=== PATIENT | male | born 1950 | race Caucasian/White ===

== ENCOUNTER 2016-07-29 10:25 | Outpatient (CLI) | payer MEDICARE, OTHER | END 2016-07-29 10:26 | disposition home or self-care (01) | DX: E11.9 Type 2 diabetes mellitus without complications (principal) ==

== ENCOUNTER 2016-08-18 10:35 | Outpatient (CLI) | payer MEDICARE, OTHER | END 2016-08-18 10:36 | disposition home or self-care (01) | DX: G47.33 Obstructive sleep apnea (adult) (pediatric) (principal) | CPT/HCPCS: 99214; G0463 ==

== ENCOUNTER 2016-10-03 08:50 | Outpatient (CLI) | payer MEDICARE, OTHER | END 2016-10-03 08:51 | disposition home or self-care (01) | DX: G47.33 Obstructive sleep apnea (adult) (pediatric) (principal) | CPT/HCPCS: 99214; G0463 ==

== ENCOUNTER 2016-10-31 16:48 | Outpatient (CLI) | payer MEDICARE, OTHER | END 2016-10-31 16:49 | disposition home or self-care (01) | DX: E11.9 Type 2 diabetes mellitus without complications (principal) ==

== ENCOUNTER 2017-03-07 07:45 | Outpatient (CLI) | payer MEDICARE, OTHER ==
[2017-03-07 14:12] LABS: HEMOGLOBIN A1C 0.91 g/dL
[2017-03-07 14:25] LABS: ALBUMIN/GLOBULIN RATIO 1.3 (1.0-2.2); BILIRUBIN,TOTAL 0.3 mg/dL (0.2-1.0); CALCIUM 9.6 mg/dL (8.5-10.3); CREATININE 1.3 mg/dL (0.6-1.2); POTASSIUM 3.5 mmol/L (3.5-5.0); TOTAL PROTEIN 7.5 g/dL (6.7-8.2)
== END 2017-03-07 07:46 | disposition home or self-care (01) ==
LOC: LAB.WCP 07:45
PROVIDERS: ATTEND Family Medicine
DX: B07.9 Viral wart, unspecified (principal); E11.9 Type 2 diabetes mellitus without complications; M25.551 Pain in right hip
CPT/HCPCS: 36415; 80053; 83036

== ENCOUNTER 2017-04-13 05:59 | Day surgery (SDC) | payer MEDICARE, OTHER ==
[2017-04-13] MEDS ORDERED: KETOROLAC 0.45% OPHTH DROPS ONE (06:30)
[2017-04-13] MEDS ORDERED: PROPARACAINE 0.5% OPHTH DROPS 15 ML ONE ×2 (06:30→07:20)
[2017-04-13] MEDS ORDERED: CYCLOPENTOLATE 1% OPHTH DROPS 2 ML ONE (06:31)
[2017-04-13] MEDS ORDERED: PHENYLEPHRINE 2.5% OPHTH 2 ML DROPS ONE (06:32)
[2017-04-13] MEDS ORDERED: PHENYLEPHRINE 2.5% OPHTH 2 ML DROPS OPTH ONE (06:50)
[2017-04-13] MEDS ORDERED: KETOROLAC 0.45% OPHTH DROPS OPTH ONE (06:50)
[2017-04-13] MEDS ORDERED: PROPARACAINE 0.5% OPHTH DROPS 15 ML OPTH ONE ×2 (06:50→07:32)
[2017-04-13] MEDS ORDERED: CYCLOPENTOLATE 1% OPHTH DROPS 2 ML OPTH ONE (06:50)
[2017-04-13] MEDS ORDERED: LACTATED RINGERS 1,000 ML IV ONE (06:54)
[2017-04-13] MEDS ORDERED: BRIMONIDINE 0.2% OPHTH DROPS 5 ML ONE (07:19)
[2017-04-13] MEDS ORDERED: TIMOLOL 0.5% OPHTH DROPS ONE (07:19)
[2017-04-13] MEDS ORDERED: BRIMONIDINE 0.2% OPHTH DROPS 5 ML OPTH ONE (07:29)
[2017-04-13] MEDS ORDERED: EPINEPHrine 1 MG/ML AMP IVP ONE (07:29)
[2017-04-13] MEDS ORDERED: CHONDR SULF/HYALURONATE SYRINGE IO ONE (07:32)
[2017-04-13] MEDS ORDERED: TIMOLOL 0.5% OPHTH DROPS OPTH ONE (07:33)
[2017-04-13] MEDS ORDERED: TRIAMCIN/MOXIFLOX/VANCO 1 ML VIAL IO ONE ×2 (07:34)
[2017-04-13] MEDS ORDERED: BSS/LIDOCAINE/EPINEPHRINE 1 ML SYRINGE IO ONE ×2 (07:34)
[2017-04-13] MEDS ORDERED: MIDAZOLAM 2 MG/2 ML VIAL IVP ONE (07:45)
[2017-04-13] MEDS ORDERED: GLYCOPYRROLATE 1 MG/5 ML VIAL IVP ONE (07:45)
[2017-04-13] MEDS ORDERED: ATROPINE ABBOJECT 1 MG/10 ML SYRINGE IVP ONE (07:45)
[2017-04-13 07:56] VITALS: BP 106/66
--- NOTE | 2017-04-13 10:11 | OPERATIVE REPORT ---
DATE OF SURGERY: 04/13/2017 00:00:00 PREOPERATIVE DIAGNOSIS: Visually significant cataract, right eye. This is his first cataract surgery. POSTOPERATIVE DIAGNOSIS: Visually significant cataract, right eye. This is his first cataract surgery . NAME OF PROCEDURE: Phacoemulsification posterior chamber intraocular lens implant, right eye. SURGEON: Declan Thacker MD. ANESTHESIA: Monitored anesthesia care. COMPLICATIONS: None. OPERATIVE INDICATIONS: This is a 66-year-old man with progressive vision loss in the right eye due to 2+ nuclear sclerotic, 2-3+ cortical and 1+ posterior subcapsular cataract. Best corrected visual acu ity was 20/25 with glare to 20/50 in the right eye. Indications for surgery were overall decrease in vision, difficulty seeing words on a computer screen, difficulty reading, difficulty seeing words and game scores on TV, difficulty seeing street signs, difficulty driving at night because of head light s from other vehicles or street lights, and difficulty with glare or bright lights in any situation a nd he also complains of double vision in that eye. He was consented at length concerning the risks an d benefits of cataract surgery, after which he expressed a desire to proceed with surgery. OPERATIVE PROCEDURE: The patient was taken into OR #2 and placed under monitored anesthesia care. A s terile time-out was conducted confirming the correct patient, correct procedure and correct surgical site. He was given topical anesthesia and then prepped and draped in the usual sterile fashion. The e ye was entered at the 12 and 9 o'clock positions. Intracameral Shugarcaine was injected into the ante rior chamber followed by Viscoat. A continuous tear curvilinear capsulorrhexis was performed. The nuc leus was hydrodissected and phacoemulsified. The cortex was evacuated using automated infusion aspira tion. Provisc was injected into the capsular bag, and a 20.5-diopter intraocular lens inserted into t he bag. Approximately 0.7 mL of a mixture of triamcinolone, moxifloxacin, and vancomycin was injected subconjunctivally in the superior quadrant for infection and inflammation prophylaxis. I/A was used to evacuate the viscoelastic materials. The eye was inflated to a physiologic pressure using balanced salt solution and found to be watertight. The patient was taken from the operating room in good cond ition and given postoperative instructions. JOB #: [id number] EXT JOB #:[id number]
== END 2017-04-13 06:00 | disposition home or self-care (01) ==
LOC: SDS 05:59
PROVIDERS: ATTEND Ophthalmology
PROC: 08RJ3JZ Replacement of Right Lens with Synthetic Substitute, Percutaneous Approach (ICD-10-PCS; principal; 2017-04-13 07:30)
DX: H25.811 Combined forms of age-related cataract, right eye (principal); E11.9 Type 2 diabetes mellitus without complications; I10 Essential (primary) hypertension; J44.9 Chronic obstructive pulmonary disease, unspecified; E78.00 Pure hypercholesterolemia, unspecified; G47.33 Obstructive sleep apnea (adult) (pediatric); Z79.82 Long term (current) use of aspirin; Z79.84 Long term (current) use of oral hypoglycemic drugs
CPT/HCPCS: 66984; A9270; J7120; V2632

== ENCOUNTER 2017-06-05 10:15 | Outpatient (CLI) | payer MEDICARE, OTHER ==
[2017-06-05 12:59] LABS: HEMOGLOBIN A1C 0.88 g/dL
== END 2017-06-05 10:16 | disposition home or self-care (01) ==
LOC: LAB.WCP 10:15
PROVIDERS: ATTEND Family Medicine
DX: E11.9 Type 2 diabetes mellitus without complications (principal)
CPT/HCPCS: 36415; 83036

== ENCOUNTER 2017-09-14 08:00 | Outpatient (CLI) | payer MEDICARE, OTHER ==
[2017-09-14 12:54] LABS: ALBUMIN 4.1 g/dL (3.2-5.5); ALBUMIN/GLOBULIN RATIO 1.2 (1.0-2.2); BILIRUBIN,TOTAL 0.5 mg/dL (0.2-1.0); CALCIUM 9.1 mg/dL (8.5-10.3); CREATININE 1.1 mg/dL (0.6-1.2); TOTAL PROTEIN 7.4 g/dL (6.7-8.2)
[2017-09-14 13:33] LABS: HB2 TOTAL 15.3 g/dL; HEMOGLOBIN A1C 0.84 g/dL; HEMOGLOBIN A1C % 7.2 % (4.6-6.2)
== END 2017-09-14 08:01 | disposition home or self-care (01) ==
LOC: LAB.WCP 08:00
PROVIDERS: ATTEND Family Medicine
DX: I10 Essential (primary) hypertension (principal); E11.9 Type 2 diabetes mellitus without complications
CPT/HCPCS: 36415; 80053; 83036

== ENCOUNTER 2017-10-09 13:34 | Outpatient (CLI) | payer MEDICARE, OTHER | END 2017-10-09 13:35 | disposition home or self-care (01) | LOC: SC 13:34 | PROVIDERS: ATTEND Nurse Practitioner Family | DX: G47.33 Obstructive sleep apnea (adult) (pediatric) (principal) | CPT/HCPCS: 99214; G0463; 99212 ==

== ENCOUNTER 2018-03-08 10:05 | Outpatient (CLI) | payer MEDICARE, OTHER ==
[2018-03-08 12:36] LABS: BASOPHILS % (AUTO) 0.6 %; EOSINOPHILS # (AUTO) 0.3 10^3/uL (0.0-0.7); EOSINOPHILS % (AUTO) 3.7 %; HGB - HEMOGLOBIN 14.9 g/dL (14.0-18.0); LYMPHOCYTES # (AUTO) 1.3 10^3/uL (1.5-3.5); LYMPHOCYTES % (AUTO) 19.7 %; MEAN CORPUSCULAR HEMOGLOBIN 28.1 pg (27.0-31.0); MEAN CORPUSCULAR VOLUME 82.5 fL (80.0-94.0); MEAN PLATELET VOLUME 9.4 fL (7.4-11.4); MONOCYTES # (AUTO) 0.4 10^3/uL (0.0-1.0); MONOCYTES % (AUTO) 5.8 %; NEUTROPHILS # (AUTO) 4.8 10^3/uL (1.5-6.6); NEUTROPHILS % (AUTO) 70.2 %; PLT - PLATELET COUNT 171 10^3/uL (130-450); RED CELL DISTRIBUTION WIDTH 14.8 % (12.0-15.0); WHITE BLOOD COUNT 6.8 x10^3/uL (4.8-10.8)
[2018-03-08 12:45] LABS: HB2 TOTAL 15.7 g/dL; HEMOGLOBIN A1C 0.76 g/dL; HEMOGLOBIN A1C % 6.6 % (4.6-6.2)
[2018-03-08 13:36] LABS: ALBUMIN 4.1 g/dL (3.2-5.5); ALBUMIN/GLOBULIN RATIO 1.2 (1.0-2.2); ALKALINE PHOSPHATASE 48 IU/L (42-121); ALT ALANINE AMINOTRANSFERASE 28 IU/L (10-60); AST ASPARTATE AMINOTRANSFERASE 26 IU/L (10-42); BILIRUBIN,TOTAL 0.6 mg/dL (0.2-1.0); BUN - BLOOD UREA NITROGEN 16 mg/dL (6-20); CALCIUM 9.8 mg/dL (8.5-10.3); CARBON DIOXIDE - CO2 28 mmol/L (21-32); CHLORIDE 100 mmol/L (101-111); CHOL/HDL RATIO 5.5 (<5.0); CHOLESTEROL 144 mg/dL; CREATININE 0.7 mg/dL (0.6-1.2); GFR - MDRD 112 (>89); GLUCOSE 134 mg/dL (70-100); HDL CHOLESTEROL 26 mg/dL; LDL CHOLESTEROL,CALCULATED 92 mg/dL; LDL/HDL RATIO 3.5 (<3.6); SODIUM 138 mmol/L (135-145); TOTAL PROTEIN 7.5 g/dL (6.7-8.2); VLDL CHOLESTEROL 26 mg/dL
== END 2018-03-08 10:06 ==
LOC: LAB.WCP 10:05
PROVIDERS: ATTEND Family Medicine
DX: E11.9 Type 2 diabetes mellitus without complications (principal); I10 Essential (primary) hypertension; B35.6 Tinea cruris; M17.9 Osteoarthritis of knee, unspecified
CPT/HCPCS: 36415; 80053; 80061; 82043; 83036; 83721; 84443; 85025

== ENCOUNTER 2018-03-12 22:30 | Observation (INO) | payer MEDICARE, OTHER ==
--- NOTE | 2018-03-12 22:56 | ED Physician Documentation ---
History of Present Illness - Stated complaint Stated Complaint: SWOLLEN TONGUE - Chief complaint Chief Complaint: General - History obtained from History obtained from: Patient - History of Present Illness Timing: Today (67-year-old gentleman on many antihypertensives including lisinopril presents with left-sided tongue swelling that began about an hour ago without clear trigger. Feels some sensation in throat as well.) Review of Systems Ten Systems: 10 systems reviewed and negative Constitutional: reports: Reviewed and negative Cardiac: denies: Chest pain / pressure, Palpitations Respiratory: denies: Dyspnea, Cough PD PAST MEDICAL HISTORY - Past Medical History Cardiovascular: Hypertension, High cholesterol Respiratory: COPD, Sleep apnea, CPAP use Endocrine/Autoimmune: Type 2 diabetes GI: GERD, Hemorrhoids : None HEENT: None Psych: None Musculoskeletal: Osteoarthritis, Other Derm: None - Past Surgical History Past Surgical History: Yes General: Cholecystectomy, Appendectomy, Colonoscopy Ortho: Arthroscopic surgery - Present Medications Home Medications: Ambulatory Orders Medication Instructions Recorded Confirmed Aspirin Chewable [[place] 81 mg PO DAILY 06/20/13 04/13/17 Aspirin] Ezetimibe/Simvastatin [Vytorin 1 each PO DAILY 06/20/13 04/13/17 10-40 mg Tablet] Fluticasone [Flonase] 1 sprays PALMER BID 06/20/13 04/13/17 Ipratropium/Albuterol Inhaler 1 puffs INH QID 06/20/13 04/13/17 [Combivent Inhaler] Lisinopril/Hydrochlorothiazide 1 each PO DAILY 06/20/13 04/13/17 [Lisinopril-Hctz 20-25 mg Tab] Multivitamin [Multi-Day Vitamins] 1 tab PO DAILY 06/20/13 04/13/17 [place]-3 Fatty Acids/Fish Oil [Fish 1 each PO BID 06/20/13 04/13/17 Oil 1,000 mg Capsule] Cetirizine [ZyrTEC] 10 mg PO DAILY 04/13/17 04/13/17 Fluticasone/Salmeterol [Advair 1 inh INH DAILY 04/13/17 04/13/17 250-50 Diskus] Furosemide [Lasix] 40 mg PO DAILY 04/13/17 04/13/17 Pantoprazole Sodium [Protonix] 40 mg PO DAILY 10/12/17 10/12/17 Potassium Chloride [Micro-K] 10 meq PO BID 04/13/17 04/13/17 metFORMIN [Glucophage] 500 mg PO BID 04/13/17 04/13/17 - Allergies Allergies/Adverse Reactions: Allergies Allergy/AdvReac Type Severity Reaction Status Date / Time codeine Allergy Intermediate Cramps Verified 03/12/18 22:39 - Social History Does the pt smoke?: Yes Smoking Status: Current every day smoker Does the pt drink ETOH?: Yes Does the pt have substance abuse?: No - Family History Family history: reports: Non contributory PD ED PE NORMAL - Vitals Vital signs reviewed: Yes - General General: Alert and oriented X 3, No acute distress - HEENT HEENT: PERRL, EOMI, Other (He has left-sided tongue angioedema but no airway compromise at this juncture. He is speaking normally.) - Neck Neck: Supple, no meningeal sign, No bony TTP - Cardiac Cardiac: RRR, No murmur - Respiratory Respiratory: No respiratory distress, Clear bilaterally - Abdomen Abdomen: Normal bowel sounds, Soft, Non tender - Back Back: No CVA TTP, No spinal TTP - Derm Derm: Normal color, Warm and dry - Extremities Extremities: No deformity, No tenderness to palpate - Neuro Neuro: Alert and oriented X 3, Normal speech - Psych Psych: Normal mood, Normal affect Results - Vitals Vitals: Vital Signs - 24 hr 03/12/18 22:34 Temperature 36.7 C Heart Rate 63 Respiratory 16 Rate Blood Pressure 131/75 H O2 Saturation 95 Oxygen O2 Source Room air PD MEDICAL DECISION MAKING - ED course ED course: 67-year-old gentleman with FRANKO induced angioedema of the tongue. Given the proximal nature of this probably deserves a night in the ICU for airway monitoring and a call was placed to hospitalist at 10:56 PM. - Sepsis Event Vital Signs: Vital Signs - 24 hr 03/12/18 22:34 Temperature 36.7 C Heart Rate 63 Respiratory 16 Rate Blood Pressure 131/75 H O2 Saturation 95 Oxygen O2 Source Room air Departure - Departure Disposition: ED Place in Observation Clinical Impression: FRANKO inhibitor-aggravated angioedema Qualifiers: Encounter type: initial encounter Qualified Code(s): T78.3XXA - Angioneurotic edema, initial encounter; T46.4X5A - Adverse effect of angiotensin-converting- enzyme inhibitors, initial encounter; T46.4X5A - Adverse effect of angiotensin- converting-enzyme inhibitors, initial encounter Condition: Serious
[2018-03-12 23:40] LABS: BASOPHILS # (AUTO) 0.1 10^3/uL (0.0-0.1); BASOPHILS % (AUTO) 0.6 %; EOSINOPHILS # (AUTO) 0.3 10^3/uL (0.0-0.7); EOSINOPHILS % (AUTO) 3.7 %; LYMPHOCYTES # (AUTO) 2.2 10^3/uL (1.5-3.5); LYMPHOCYTES % (AUTO) 24.9 %; MEAN CORPUSCULAR HEMOGLOBIN 28.2 pg (27.0-31.0); MEAN CORPUSCULAR HGB CONC 34.2 g/dL (32.0-36.0); MEAN CORPUSCULAR VOLUME 82.3 fL (80.0-94.0); MEAN PLATELET VOLUME 8.5 fL (7.4-11.4); MONOCYTES # (AUTO) 0.5 10^3/uL (0.0-1.0); MONOCYTES % (AUTO) 5.9 %; NEUTROPHILS # (AUTO) 5.7 10^3/uL (1.5-6.6); NEUTROPHILS % (AUTO) 64.9 %; PLT - PLATELET COUNT 167 10^3/uL (130-450); RED BLOOD COUNT 5.33 10^6/uL (4.70-6.10); RED CELL DISTRIBUTION WIDTH 14.7 % (12.0-15.0); WHITE BLOOD COUNT 8.8 x10^3/uL (4.8-10.8)
[2018-03-12 23:48] LABS: CALCIUM 9.1 mg/dL (8.5-10.3); CREATININE 1.4 mg/dL (0.6-1.2)
[2018-03-12] MEDS ORDERED: SODIUM CHLORIDE FLUSH 0.9% 10 ML SYRINGE IVP PRN (23:54)
[2018-03-12] MEDS ORDERED: NICOTINE 14 MG PATCH TOP STA (23:58)
[2018-03-13] MEDS: SODIUM CHLORIDE FLUSH 0.9% 10 ML SYRINGE IVP SCH ×2 (04:18→08:52)
--- NOTE | 2018-03-13 05:40 | HISTORY & PHYSICAL EXAMINATION ---
Chief Complaint - Chief Complaint Chief Complaint: tongue swelling History of Present Illness - History of Present Illness HPI Comment/Other: Patient is a 67 y/o male who presented to the ED with complain of tongue swelling which started around 9:45 pm on 03/12/18 It was more prominent on the left. He report that it felt sore and hurt to swallow.He is on lisinopril and last took it around 8:30 am on 03/12/18. He denies any previous occurence. He denies chest pain or MARCELINO. No abd pain, nausea, vomiting or diarrhea. No fever or chills. The rest of his history is unremarkable. By the time of my visit, the patient reported improvement in his swelling. History - Past Medical History Cardiovascular: reports: Hypertension, High cholesterol Respiratory: reports: COPD, Sleep apnea, CPAP use Neuro: reports: None Endocrine/Autoimmune: reports: Type 2 diabetes GI: reports: GERD, Hemorrhoids : reports: None HEENT: reports: None Psych: reports: None Musculoskeletal: reports: Osteoarthritis, Other Derm: reports: None MRSA Hx?: No - Past Surgical History General: reports: Cholecystectomy, Appendectomy, Colonoscopy Ortho: reports: Arthroscopic surgery HEENT: reports: Cataracts - POLST Patient has POLST: No Meds/Allgy - Home Medications Home Medications: Ambulatory Orders Medication Instructions Recorded Confirmed Aspirin Chewable [[place] 81 mg PO DAILY 06/20/13 04/13/17 Aspirin] Ezetimibe/Simvastatin [Vytorin 1 each PO DAILY 06/20/13 04/13/17 10-40 mg Tablet] Fluticasone [Flonase] 1 sprays PALMER BID 06/20/13 04/13/17 Ipratropium/Albuterol Inhaler 1 puffs INH QID 06/20/13 04/13/17 [Combivent Inhaler] Lisinopril/Hydrochlorothiazide 1 each PO DAILY 06/20/13 04/13/17 [Lisinopril-Hctz 20-25 mg Tab] Multivitamin [Multi-Day Vitamins] 1 tab PO DAILY 06/20/13 04/13/17 [place]-3 Fatty Acids/Fish Oil [Fish 1 each PO BID 06/20/13 04/13/17 Oil 1,000 mg Capsule] Cetirizine [ZyrTEC] 10 mg PO DAILY 04/13/17 04/13/17 Fluticasone/Salmeterol [Advair 1 inh INH DAILY 04/13/17 04/13/17 250-50 Diskus] Furosemide [Lasix] 40 mg PO DAILY 04/13/17 04/13/17 Pantoprazole Sodium [Protonix] 40 mg PO DAILY 04/13/17 04/13/17 Potassium Chloride [Micro-K] 10 meq PO BID 04/13/17 04/13/17 metFORMIN [Glucophage] 500 mg PO BID 04/13/17 04/13/17 - Allergies Allergies/Adverse Reactions: Allergies Allergy/AdvReac Type Severity Reaction Status Date / Time codeine Allergy Intermediate Cramps Verified 03/12/18 22:39 lisinopril Allergy Unknown Verified 03/13/18 05:43 Review of Systems - Constitutional Constitutional: denies: Fatigue, Fever, Weakness, Poor appetite - Eyes Eyes: denies: Pain, Vision loss - Ears, Nose & Throat Ears, Nose & Throat: reports: Sore throat, Other. denies: Ear pain, Tinnitus, Vertigo, Nosebleeds - Cardiovascular Cariovascular: denies: Irregular heart rate, Palpitations, Chest pain, Edema, Lightheadedness - Respiratory Respiratory: denies: Cough, Sputum production, Wheezing, Orthopnea - Gastrointestinal Gastrointestinal: reports: Reflux/heartburn. denies: Abdominal pain, Abdominal distention, Constipation, Diarrhea, Nausea, Vomiting - Genitourinary Genitourinary: denies: Dysuria, Frequency, Urgency, Hematuria, Incontinence - Musculoskeletal Musculoskeletal: denies: Muscle pain, Back pain, Muscle aches, Stiffness - Integumentary Integumentary: denies: Rash - Neurological Neurological: denies: General weakness - Psychiatric Psychiatric: denies: Anxiety - Endocrine Endocrine: denies: Polyuria, Polydypsia - Hematologic/Lymphatic Hematologic/Lymphatic: denies: Anemia, Bruising, Petechiae Exam - Vital Signs Vital Signs: Vital Signs x48h Temp Pulse Resp BP Pulse Ox 03/13/18 00:20 36.6 C 51 L 14 122/66 94 03/12/18 22:34 36.7 C 63 16 131/75 H 95 - Physical Exam General Appearance: positive: No acute distress, Alert, Mild distress Eyes Bilateral: positive: Normal inspection, PERRL, EOMI ENT: positive: ENT inspection nml, Pharynx nml, Other (swollen tongue. Greater on left side) Neck: positive: Nml inspection, Thyroid nml, No JVD, Trachea midline Respiratory: positive: Chest non-tender, No respiratory distress, Breath sounds nml. negative: Wheezes, Rales, Rhonchi Cardiovascular: positive: Regular rate & rhythm, No murmur Abdomen: positive: Non-tender, No organomegaly, Nml bowel sounds, No distention. negative: Tenderness Extremities: positive: Non-tender, Full ROM, Nml appearance, No pedal edema Neurologic/Psychiatric: positive: Oriented x3, CN's nml (2-12) Conclusion/Plan - Problem List (1) FRANKO inhibitor-aggravated angioedema Conclusion/Plan: Will d/c FRANKO inhibitor. Will hold motrin as well Lisinopril has been added as an allergy to the patient's list. Patient has been protecting his airway. Will monitor for any sign of airway compromise Anticipated discharged home later today 03/13/18 Qualifiers: Encounter type: initial encounter Qualified Code(s): T78.3XXA - Angioneurotic edema, initial encounter; T46.4X5A - Adverse effect of vjweimhdcvb-bjzdrkgaku-hjmofk inhibitors, initial encounter; T46.4X5A - Adverse effect of snhdnkcvuby-vbwkxcrksi-lfowbl inhibitors, initial encounter (2) Hypertension Conclusion/Plan: FRANKO inhibitor discontinued due to angioedema Will prescribe amlodipine 5 mg daily. It can be titrate up weekly to effect. Patient should follow up with his PCP for further management Qualifiers: Hypertension type: essential hypertension Qualified Code(s): I10 - Essential (primary) hypertension (3) Diabetes mellitus Conclusion/Plan: Continue metformin 500mg po bid Qualifiers: Diabetes mellitus type: type 2 Diabetes mellitus manager long term care insulin use: with senior living use Diabetes mellitus complication status: without complication Qualified Code(s): E11.9 - Type 2 diabetes mellitus without complications; Z79.4 - manager long term care (current) use of insulin (4) Hyperlipidemia Conclusion/Plan: Patient on fish oil and Vytorin Will continue Qualifiers: Hyperlipidemia type: unspecified Qualified Code(s): E78.5 - Hyperlipidemia, unspecified (5) LINSEY on CPAP Conclusion/Plan: Continue CPAP (6) GERD (gastroesophageal reflux disease) Conclusion/Plan: On Protonix (7) COPD (chronic obstructive pulmonary disease) Conclusion/Plan: At baseline Not in exacerbation On Advair and Combivent (8) Tobacco abuse Conclusion/Plan: Nicotine patch 14mg/day - Lab Results Fish Bones: 03/12/18 23:30 03/12/18 23:30 Core Measures - DVT/VTE - Prophylaxis VTE/DVT Device ordered at admit?: No Not Ordered - Low Risk: Low Risk (Patient can readily ambulate) VTE/DVT Prophylaxis med ordered at admit?: No
[2018-03-13] MEDS ORDERED: IPRATROPIUM/ALBUTEROL 3 ML NEB INH PRN (07:21)
[2018-03-13 07:51] VITALS: BP 114/62
[2018-03-13] MEDS ORDERED: POTASSIUM CHLORIDE 10 MEQ CAPSULE PO SCH (09:00)
[2018-03-13] MEDS ORDERED: FUROSEMIDE 40 MG TABLET PO SCH (09:00)
[2018-03-13] MEDS ORDERED: PANTOPRAZOLE 40 MG TABLET PO SCH (09:00)
[2018-03-13] MEDS ORDERED: ASPIRIN CHEW 81 MG TABLET PO SCH (09:00)
[2018-03-13] MEDS ORDERED: MULTIVITAMIN TABLET PO SCH (09:00)
[2018-03-13] MEDS ORDERED: ATORVASTATIN 10 MG TABLET PO SCH (09:00)
[2018-03-13] MEDS ORDERED: EZETIMIBE 10 MG TABLET PO SCH (09:00)
[2018-03-13] MEDS ORDERED: FLUTICASONE NASAL SPRAY NAS SCH (09:00)
[2018-03-13] MEDS ORDERED: POLYETHYLENE GLYCOL 3350 17 GM PACKET PO SCH (09:00)
[2018-03-13] MEDS ORDERED: CETIRIZINE 10 MG TABLET PO SCH (09:00)
[2018-03-13] MEDS ORDERED: OMEGA-3 ACID ETHYL ESTERS 1 GM CAPSULE PO SCH (09:00)
[2018-03-13] MEDS ORDERED: metFORMIN 500 MG TABLET PO SCH (09:00)
--- NOTE | 2018-03-13 12:08 | Discharge Plan ---
Discharge Plan Disposition: Home, Self Care Condition: Good Prescriptions: amLODIPine [Norvasc] 5 mg PO DAILY #30 tablet Ezetimibe [Zetia] 10 mg PO DAILY #30 tablet Furosemide 20 mg PO DAILY #30 tablet Nicotine 14 mg Patch [Nicoderm] 1 each TOP Q24H #7 patch Nicotine 7 mg Patch [Nicoderm] 1 each TOP Q24H #7 patch Spironolactone 25 mg PO DAILY #30 tablet Diet: Cardiac Activity Restrictions: No Restrictions Shower Restrictions: No Driving Restrictions: No Weight Bearing: Full Weight Additional Instructions or Follow Up instructions: You were watched for greater than 12 hours for worsening tongue swelling thought to be caused by lisinopril. An echocardiogram is pending, and this report will be forwarded to Dr. Gonzales for his review. Please STOP Potassium & Lisinopril: Please take a new antihypertensive- Norvasc daily. Please start Spironolactone as this is specific to abdominal/leg edema, and reduce your lasix dose to 20 mg daily. New prescriptions have been sent to your pharmacy. To help you with smoking cessation, I have sent a few nicotine doses to the pharmacy. Please see your PCP within one week or as previously scheduled. No Smoking: If you smoke, Please STOP! Call for help. Follow-up with: Bigg Gonzales MD [Primary Care Provider] -
--- NOTE | 2018-03-13 12:24 | DISCHARGE SUMMARY ---
Discharge Summary Admit Date: 03/12/18 Discharge Date: 03/13/18 Discharging Provider: LYNDON Howard Primary Care Provider: Florian Gonzales Code Status: Attempt Resuscitation Condition at Discharge: Good Discharge Disposition: 01 Home, Self Care - DIAGNOSES Admission Diagnoses: FRANKO inhibitor-aggravated angioedema (T78.3XXA) Hypertension (I10) Diabetes mellitus (E11.9) Hyperlipidemia (E78.5) LINSEY on CPAP (G47.33) GERD (gastroesophageal reflux disease) (K21.9) COPD (chronic obstructive pulmonary disease) (J44.9) Tobacco abuse (Z72.0 Discharge Diagnoses with Status of Each Condition: FRANKO inhibitor-aggravated angioedema (T78.3XXA) -resolved. Hypertension (I10) -chronic, stable, new medications. Diabetes mellitus (E11.9) -chronic, stable. Hyperlipidemia (E78.5) -chronic, stable. ILNSEY on CPAP (G47.33) -chronic, stable. GERD (gastroesophageal reflux disease) (K21.9) -chronic, stable. COPD (chronic obstructive pulmonary disease) (J44.9) -chronic, stable. Tobacco abuse (Z72.0) -chronic, stable, nicotine patches sent to the pharmacy. Chronic pain of right knee (M25.561)-chronic, stable. - HPI History of Present Illness: Anand Reed is a 67 y/o male with a past medical history of hypertension, peripheral edema, chronic pain, tobacco dependence, LINSEY on CPAP, COPD, GERD, DM type 2, and nocturia. He presented to the ED with complaints of tongue swelling which started around 9:45 pm on 03/12/18. It was more prominent on the left and he reported that it felt very sore causing painful swallowing. He is on lisinopril and last took it around 8:30 am on 03/12/18. He denies any previous occurrence. He denies chest pain, abdominal pain, nausea, vomiting or diarrhea, fever or chills. At the time of his H & P interview, his swelling had nearly resolved, although he should be observed for at least the next 12 hours in observation status. - HOSPITAL COURSE Hospital Course: (1) FRANKO inhibitor-aggravated angioedema The patient has been prescribed lisinopril for several years and last night noticed left tongue swelling. His FRANKO inhibitor was immediately stopped and Lisinopril was added to his allergy list. The patient had a resolution of this presenting complaints of left tongue swelling and was thought to have no comprise to his airway. This condition is considered resolved upon discharge. (2) Hypertension The patient was prescribed lisinopril/HCTZ, which has been discontinued and replaced with Norvasc, spironolactone, and a reduction in lasix. The patient was instructed to follow up with his PCP for further management, labs, etc. (3) Diabetes mellitus The patient admits to being diabetic for the past several days. A hemoglobin A1C was 6.6%. He was continued on metformin 500mg po bid and given a carb controlled diet. (4) Hyperlipidemia The patient is prescribed fish oil, a statin, and Vytorin. This will continue and is considered stable. (5) LINSEY on CPAP The patient claims to be compliant with his home CPAP, and we are awaiting latest echo results for suspected pulmonary hypertension. (6) GERD (gastroesophageal reflux disease) The patient had no complaints of heart burn symptoms, and remained on prescribed Protonix while here. A blood magnesium level was checked and found to be low at 1.6. Oral replacement was given and this considered stable. (7) COPD (chronic obstructive pulmonary disease) The patient likely has this as a consequence of his fdc smoking for greater than 30 years. He was considered to be at baseline without exacerbation and is prescribed Advair and Combivent at home. (8) Tobacco abuse The patient admits to being a life-long smoker of 1 PPD, he admits to a re duction in use in the past few years. He now smokes 0.5-1 PPD. He was started on a Nicotine patch 14mg/day, while here. He agrees to attempt cessation at this time, so a prescription for nicotine 14 mg was sent to his pharmacy. (9) Chronic pain The patient states that he has chronic right knee pain after a total knee arthroplasty a few years ago. He also claims to have intermittent right leg pain associated with sciatica. He states that he only takes tramadol, and high dose ibuprofen 800mg TID at home very occasionally ~3-5 xs/month. This was placed on hold while in the hospital and discontinued for discharge. He is to speak to his PCP about further pain management options, such as a referral to a pain clinic, or out patient PT including water therapy. Disposition: The patient was in stable medical condition and was anxious to return home as he is the primary caregiver to his 3 grandchildren. His presenting angioedema has resolved, and necessary adjustments were made to his daily anti-hypertensives. He is to see his PCP within one week. - ALLERGIES Allergies/Adverse Reactions: Allergies Allergy/AdvReac Type Severity Reaction Status Date / Time lisinopril Allergy Severe ANGIOEDEMA Verified 03/13/18 10:28 codeine Allergy Intermediate Cramps Verified 03/12/18 22:39 - MEDICATIONS Home Medications: Ambulatory Orders Medication Instructions Recorded Confirmed Aspirin Chewable [[place] 81 mg PO DAILY 06/20/13 03/13/18 Aspirin] Multivitamin [Multi-Day Vitamins] 1 tab PO DAILY 06/20/13 03/13/18 [place]-3 Fatty Acids/Fish Oil [Fish 1 each PO BID 06/20/13 03/13/18 Oil 1,000 mg Capsule] Cetirizine [ZyrTEC] 10 mg PO DAILY 04/13/17 03/13/18 Fluticasone/Salmeterol [Advair 1 inh INH BID 04/13/17 03/13/18 250-50 Diskus] Pantoprazole Sodium [Protonix] 40 mg PO QDAC 04/13/17 03/13/18 Albuterol Sulfate [Proair Hfa 2 puffs INH Q4H PRN 03/13/18 03/13/18 Inhaler] Ezetimibe [Zetia] 10 mg PO DAILY #30 tablet 03/13/18 Furosemide 20 mg PO DAILY #30 tablet 03/13/18 Ipratropium/Albuterol [Combivent 1 puffs INH QID 03/13/18 03/13/18 Respimat] Metformin HCl [Metformin HCl ER] 500 mg PO BID 03/13/18 03/13/18 Nicotine 14 mg Patch [Nicoderm] 1 each TOP Q24H #7 patch 03/13/18 Nicotine 7 mg Patch [Nicoderm] 1 each TOP Q24H #7 patch 03/13/18 Spironolactone 25 mg PO DAILY #30 tablet 03/13/18 amLODIPine [Norvasc] 5 mg PO DAILY #30 tablet 03/13/18 traMADol [Ultram] 50 mg PO TID PRN 03/13/18 03/13/18 - PHYSICAL EXAM AT DISCHARGE General Appearance: positive: No acute distress, Alert Eyes Bilateral: positive: Normal inspection, PERRL ENT: positive: ENT inspection nml, Pharynx nml, No signs of dehydration Neck: positive: Nml inspection, Thyroid nml, No JVD, Trachea midline, Stiff neck Respiratory: positive: Chest non-tender, No respiratory distress, Breath sounds nml Cardiovascular: positive: Regular rate & rhythm, No gallop, Bradycardia, Systolic murmur Peripheral Pulses: positive: 2+ Abdomen: positive: Non-tender, Nml bowel sounds, Other (obese, soft) Back: positive: Nml inspection Skin: positive: No rash, Warm, Dry Extremities: positive: Non-tender, Full ROM, Nml appearance, Pedal edema (mild BLE), Joint swelling Neurologic/Psychiatric: positive: Oriented x3, CN's nml (2-12), Motor nml, Sensation nml, Depressed mood/affect Reflexes: Bicep (R): 3+, Bicep (L): 3+ - LABS Result Diagrams: 03/12/18 23:30 03/13/18 12:36 - DIAGNOSTIC IMAGING Diagnostic Imaging Results: Prelim report reviewed, Final report reviewed Diagnostic Imaging Results Comments: Echocardiogram is pending. - FOLLOW UP Follow Up: Disposition: 01 Home, Self Care Condition: Good Prescriptions: amLODIPine [Norvasc] 5 mg PO DAILY #30 tablet Ezetimibe [Zetia] 10 mg PO DAILY #30 tablet Furosemide 20 mg PO DAILY #30 tablet Nicotine 14 mg Patch [Nicoderm] 1 each TOP Q24H #7 patch Nicotine 7 mg Patch [Nicoderm] 1 each TOP Q24H #7 patch Spironolactone 25 mg PO DAILY #30 tablet Diet: Cardiac Activity Restrictions: No Restrictions Shower Restrictions: No Driving Restrictions: No Weight Bearing: Full Weight Additional Instructions or Follow Up instructions: You were watched for greater than 12 hours for worsening tongue swelling thought to be caused by lisinopril. An echocardiogram is pending, and this report will be forwarded to Dr. Gonzales for his review. Please STOP Potassium & Lisinopril: Please take a new antihypertensive- Norvasc daily. Please start Spironolactone as this is specific to abdominal/leg edema, and reduce your lasix dose to 20 mg daily. New prescriptions have been sent to your pharmacy. To help you with smoking cessation, I have sent a few nicotine doses to the pharmacy. Please see your PCP within one week or as previously scheduled. - TIME SPENT Time Spent in Discharge (Minutes): 50
[2018-03-13 12:53] LABS: CALCIUM 9.2 mg/dL (8.5-10.3); CREATININE 1.1 mg/dL (0.6-1.2); MAGNESIUM 1.6 mg/dL (1.7-2.8)
[2018-03-13 13:04] LABS: HEMOGLOBIN A1C 0.77 g/dL; HEMOGLOBIN A1C % 6.6 % (4.6-6.2)
[2018-03-13] MEDS ORDERED: SPIRONOLACTONE 25 MG TABLET PO ONE (14:03)
[2018-03-13] MEDS ORDERED: MAGNESIUM OXIDE 400 MG TABLET PO ONE (14:03)
[2018-03-13] MEDS ORDERED: FORMOTEROL FUMARATE NEB 20 MCG/2 ML INH SCH (19:00)
[2018-03-13] MEDS ORDERED: BUDESONIDE 0.5 MG/2 ML NEB INH SCH (19:00)
== END 2018-03-13 14:53 | disposition home or self-care (01) ==
LOC: ED 22:30 → MS3 23:54
PROVIDERS: ADMIT Internal Medicine; ATTEND Nurse Practitioner
DX: T78.3XXA Angioneurotic edema, initial encounter (principal); T46.4X5A Adverse effect of angiotensin-converting-enzyme inhibitors, initial encounter; I10 Essential (primary) hypertension; E11.9 Type 2 diabetes mellitus without complications; Z79.84 Long term (current) use of oral hypoglycemic drugs; E78.5 Hyperlipidemia, unspecified; G47.33 Obstructive sleep apnea (adult) (pediatric); K21.9 Gastro-esophageal reflux disease without esophagitis; J44.9 Chronic obstructive pulmonary disease, unspecified; F17.210 Nicotine dependence, cigarettes, uncomplicated; M25.561 Pain in right knee; G89.29 Other chronic pain; Z96.651 Presence of right artificial knee joint; Z79.82 Long term (current) use of aspirin
CPT/HCPCS: 36415; 80048; 83036; 83735; 83880; 85025; 93306; 99283; 99284; A9270; G0378

== ENCOUNTER 2018-03-23 09:25 | Outpatient (CLI) | payer MEDICARE, OTHER ==
[2018-03-23 12:53] LABS: ALBUMIN 3.9 g/dL (3.2-5.5); ALBUMIN/GLOBULIN RATIO 1.3 (1.0-2.2); BILIRUBIN,TOTAL 0.5 mg/dL (0.2-1.0); CREATININE 0.9 mg/dL (0.6-1.2); TOTAL PROTEIN 6.9 g/dL (6.7-8.2)
== END 2018-03-23 09:26 | disposition home or self-care (01) ==
LOC: LAB.WCP 09:25
PROVIDERS: ATTEND Family Medicine
DX: E11.9 Type 2 diabetes mellitus without complications (principal); I10 Essential (primary) hypertension
CPT/HCPCS: 36415; 80053

== ENCOUNTER 2018-09-10 08:00 | Outpatient (CLI) | payer MEDICARE, OTHER ==
[2018-09-10 13:31] LABS: CALCIUM 9.2 mg/dL (8.5-10.3); CREATININE 1.1 mg/dL (0.6-1.2)
[2018-09-10 13:44] LABS: CREATININE,URINE 20.8 mg/dL; MICROALBUM/CREATININE RATIO,UR 14.4 ug/mg (<30.0); MICROALBUMIN,URINE 0.3 mg/dL (0-300.0)
[2018-09-10 14:19] LABS: HB2 TOTAL 16.9 g/dL; HEMOGLOBIN A1C 0.99 g/dL; HEMOGLOBIN A1C % 7.5 % (4.6-6.2)
== END 2018-09-10 23:59 | disposition home or self-care (01) ==
LOC: LAB.WCP 08:00
PROVIDERS: ATTEND Family Medicine
DX: E11.9 Type 2 diabetes mellitus without complications (principal)
CPT/HCPCS: 36415; 80048; 82043; 82570; 83036

== ENCOUNTER 2018-10-09 08:15 | Outpatient (CLI) | payer MEDICARE, OTHER | END 2018-10-09 08:16 | disposition home or self-care (01) | LOC: SC 08:15 | PROVIDERS: ATTEND Nurse Practitioner Family | DX: G47.33 Obstructive sleep apnea (adult) (pediatric) (principal) | CPT/HCPCS: 99214; G0463; 99212 ==

== ENCOUNTER 2018-12-11 07:52 | Outpatient (CLI) | payer MEDICARE, OTHER ==
[2018-12-11 14:54] LABS: ALBUMIN 4.1 g/dL (3.2-5.5); ALBUMIN/GLOBULIN RATIO 1.1 (1.0-2.2); BILIRUBIN,TOTAL 0.6 mg/dL (0.2-1.0); CALCIUM 9.3 mg/dL (8.5-10.3); CREATININE 1.4 mg/dL (0.6-1.2); TOTAL PROTEIN 7.7 g/dL (6.7-8.2)
[2018-12-11 15:00] LABS: HB2 TOTAL 16.7 g/dL; HEMOGLOBIN A1C 1.05 g/dL; HEMOGLOBIN A1C % 7.9 % (4.6-6.2)
== END 2018-12-11 07:53 | disposition home or self-care (01) ==
LOC: LAB.WCP 07:52
PROVIDERS: ATTEND Family Medicine
DX: J45.909 Unspecified asthma, uncomplicated (principal); E11.42 Type 2 diabetes mellitus with diabetic polyneuropathy; I10 Essential (primary) hypertension
CPT/HCPCS: 36415; 80053; 83036

== ENCOUNTER 2019-03-12 08:00 | Outpatient (CLI) | payer MEDICARE, OTHER ==
[2019-03-12 19:03] LABS: HB2 TOTAL 15.9 g/dL; HEMOGLOBIN A1C 0.97 g/dL; HEMOGLOBIN A1C % 7.7 % (4.6-6.2)
[2019-03-12 19:04] LABS: ALBUMIN 4.1 g/dL (3.2-5.5); ALBUMIN/GLOBULIN RATIO 1.1 (1.0-2.2); BILIRUBIN,TOTAL 0.6 mg/dL (0.2-1.0); CALCIUM 9.4 mg/dL (8.5-10.3); CREATININE 1.1 mg/dL (0.6-1.2); TOTAL PROTEIN 7.7 g/dL (6.7-8.2)
== END 2019-03-12 23:59 | disposition home or self-care (01) ==
LOC: LAB.WCP 08:00
PROVIDERS: ATTEND Family Medicine
DX: I10 Essential (primary) hypertension (principal); E11.9 Type 2 diabetes mellitus without complications; J44.9 Chronic obstructive pulmonary disease, unspecified
CPT/HCPCS: 36415; 80053; 83036

== ENCOUNTER 2019-06-13 08:00 | Outpatient (CLI) | payer MEDICARE, OTHER ==
[2019-06-13 13:14] LABS: CALCIUM 9.3 mg/dL (8.5-10.3)
[2019-06-13 13:31] LABS: CREATININE,URINE 153.7 mg/dL
[2019-06-13 13:59] LABS: HB2 TOTAL 14.8 g/dL; HEMOGLOBIN A1C 0.78 g/dL
== END 2019-06-13 23:59 | disposition home or self-care (01) ==
LOC: LAB.WCP 08:00
PROVIDERS: ATTEND Family Medicine
DX: I10 Essential (primary) hypertension (principal); E11.9 Type 2 diabetes mellitus without complications; E78.5 Hyperlipidemia, unspecified
CPT/HCPCS: 36415; 80048; 82043; 82570; 83036

== ENCOUNTER 2019-09-11 09:49 | Outpatient (CLI) | payer MEDICARE, OTHER ==
[2019-09-11 12:38] LABS: CALCIUM 9.5 mg/dL (8.5-10.3)
[2019-09-11 12:49] LABS: CREATININE,URINE 36.4 mg/dL; MICROALBUM/CREATININE RATIO,UR 19.2 ug/mg (<30.0); MICROALBUMIN,URINE 0.7 mg/dL (0-300.0)
[2019-09-11 13:35] LABS: HB2 TOTAL 14.9 g/dL; HEMOGLOBIN A1C 0.66 g/dL; HEMOGLOBIN A1C % 6.2 % (4.6-6.2)
[2019-09-11 13:51] LABS: CHOL/HDL RATIO 6.7 (<5.0); CHOLESTEROL 180 mg/dL; HDL CHOLESTEROL 27 mg/dL; LDL CHOLESTEROL,CALCULATED 125 mg/dL; LDL/HDL RATIO 4.6 (<3.6); VLDL CHOLESTEROL 28 mg/dL
== END 2019-09-11 23:59 | disposition home or self-care (01) ==
LOC: LAB.WCP 09:49
PROVIDERS: ATTEND Family Medicine
DX: I11.9 Hypertensive heart disease without heart failure (principal); E11.22 Type 2 diabetes mellitus with diabetic chronic kidney disease; N18.9 Chronic kidney disease, unspecified; R78.9 Finding of unspecified substance, not normally found in blood
CPT/HCPCS: 36415; 80048; 80061; 82043; 82570; 83036; 83721; 84443

== ENCOUNTER 2019-10-11 07:00 | Outpatient (CLI) | payer MEDICARE, OTHER | END 2019-10-11 23:59 | disposition home or self-care (01) | LOC: LAB.R 07:00 | PROVIDERS: ATTEND Physician Assistant Medical | DX: K52.9 Noninfective gastroenteritis and colitis, unspecified (principal) | CPT/HCPCS: 83630; 87045; 87046 ==

== ENCOUNTER 2019-10-15 16:36 | Outpatient (CLI) | payer MEDICARE, OTHER ==
--- NOTE | 2019-10-15 10:12 | SLEEP CARE CONSULTATION ---
Information from patient questionnaire entered by Tracy Calvillo. I have reviewed and concur with the information entered by Tracy Calvillo. This document represents the service I personally performed and the decisions made by me, Deana Razo MD, [facility]. History of Present Illness Service Date and Time: 10/15/2019 1000 Previous diagnosis: Severe, Obstructive Sleep Apnea-Hypopnea Syndrome AHI: 38.1 Reason for follow up: annual Equipment type: CPAP Equipment obtained from: [employer] HPI additional information: To minimize the risk of COVID-19 exposure, the patient has requested and consented to this telephone visit. The patient also agrees to having his insurance billed. HPI: Mr. Reed was called today to follow up on the nasal CPAP therapy. He was diagnosed to have severe obstructive sleep apnea-hypopnea syndrome. The patient wears a Respironics DreamWear nasal cushion mask. [employer] is his durable medical supplier. He reports using the device nightly and all through the night. The compliance report shows usage in 180 nights out of the past 180 nights, averaging 10 hours a night. The > 4 hour compliance rate for the past 30 days is 100%. He complained of no particular problem with the device such as soreness on the face, dry nose, epistaxis, nasal congestion or headache. He thinks that the current pressure of 15 cmH2O is comfortable. On the CPAP therapy he notices improvement in his sleep quality, and that he wakes up feeling fresher in the morning and more awake/alert during the day. His notices no snore at all. The average residual AHI is 0.9; and average time in large leak per day is 4 seconds. Weight is down to 294 lbs. CPAP Compliance Data - Data Reviewed with Patient Average duration of nightly device use: 9h 57m Compliance rate %: 100 Current pressure setting (cmH2O): 15 Humidity settin Heated hose settin Average residual AHI: 0.9 Average large leak: 4s Subjective Initial [place] Sleepiness Scale score: 9 Allergies and Home Medications Drug allergies reviewed: Yes Home medication list reviewed: Yes Review of Systems Review of systems same as previous: Yes Physical Exam Height: 5 ft 9 in Impression and Plan IMPRESSION: 1. Obstructive Sleep Apnea-Hypopnea Syndrome, severe (AHI was 38.1), with the patient doing well on nasal CPAP therapy. He has excellent compliance and significant clinical improvement. The current pressure appears effective and comfortable. His mask fits well. Overall, he is very satisfied with treatment and plans to continue with it long-term. Because the residual AHI is very low, I will lower the pressure for increased comfort. PLAN: 1. Set device to autoCPAP with pressure 10 15 cmH2O. 2. Try to lose weight 3. Try ResMed N30i mask. 4. Return in one year for follow up or earlier if there is any problem with the treatment. Visit Type: Telehealth Phone Location of Provider: Home Patient agrees and consents to this telehealth visit type: Yes Time Spent with Patient (minutes): 10 Provider Statement: I spent 100% of the Telehealth Phone Call with the patient with greater than 50% spent counseling the patient and coordination of care.
== END 2019-10-15 16:37 | disposition home or self-care (01) ==
LOC: SC 16:36
PROVIDERS: ATTEND Internal Medicine Pulmonary Disease
DX: G47.33 Obstructive sleep apnea (adult) (pediatric) (principal)

== ENCOUNTER 2019-12-17 08:22 | Outpatient (CLI) | payer MEDICARE, OTHER ==
[2019-12-17 12:07] LABS: HB2 TOTAL 15.4 g/dL; HEMOGLOBIN A1C 0.66 g/dL; HEMOGLOBIN A1C % 6.1 % (4.6-6.2)
== END 2019-12-17 23:59 | disposition home or self-care (01) ==
LOC: LAB.WCP 08:22
PROVIDERS: ATTEND Family Medicine
DX: E11.9 Type 2 diabetes mellitus without complications (principal)
CPT/HCPCS: 36415; 80048; 83036

== ENCOUNTER 2020-04-14 08:00 | Outpatient (CLI) | payer MEDICARE, OTHER ==
[2020-04-14 19:21] LABS: CALCIUM 9.6 mg/dL (8.5-10.3); CREATININE 0.9 mg/dL (0.6-1.2); CREATININE,URINE 27.5 mg/dL; MICROALBUM/CREATININE RATIO,UR 10.9 ug/mg (<30.0); MICROALBUMIN,URINE 0.3 mg/dL (0-300.0)
[2020-04-14 20:39] LABS: HEMOGLOBIN A1c% 6.1 % (4.27-6.07)
== END 2020-04-14 23:59 | disposition home or self-care (01) ==
LOC: LAB.WCP 08:00
PROVIDERS: ATTEND Family Medicine
DX: E11.9 Type 2 diabetes mellitus without complications (principal)
CPT/HCPCS: 36415; 80048; 82043; 82570; 83036

== ENCOUNTER 2020-05-07 13:43 | Emergency (ER) | payer MEDICARE, OTHER ==
--- NOTE | 2020-05-07 14:26 | XRAY Report ---
PROCEDURE: Chest 2 View X-Ray INDICATIONS: Cough, hemoptysis, COPD TECHNIQUE: 2 view(s) of the chest. COMPARISON: None. FINDINGS: Surgical changes and devices: None. Lungs and pleura: No pleural effusions or pneumothorax. Lungs are clear. Mediastinum: Nonspecific right hilar fullness with an abnormally rounded convex margin along the late ral aspect of the right hilum. Cardiac and mediastinal contours are otherwise normal. Bones and chest wall: No suspicious bony abnormalities. Soft tissues appear unremarkable. IMPRESSION: Nonspecific right hilar fullness with an abnormally rounded convex margin along the lateral aspect of the right hilum. This could simply represent a normal hilar vessel, although this is not definitive. CT of the chest with IV is recommended for further evaluation. Reviewed by: Mark Child MD on 05/07/2020 2:25 PM PST Approved by: Mark Child MD on 05/07/2020 2:25 PM PST Station ID: [id number]
--- NOTE | 2020-05-07 15:28 | ED Physician Documentation ---
PD HPI URI - Stated complaint Stated Complaint: COUGHING BLOOD - Chief complaint Chief Complaint: Resp - History obtained from History obtained from: Patient - History of Present Illness Timing - onset: How many days ago (few) Timing duration: Days (few) Timing details: Gradual onset, Still present Associated symptoms: Sore throat, Productive cough, Hemoptysis (mild blood streaks with mostly red/ white to mclean sputum.). No: Fever Contributing factors: COPD / asthma. No: Sick contact, Travel, Immun ocompromised Worsened by: Activity Similar symptoms before: No diagnosis Recently seen: Not recently seen Review of Systems Constitutional: reports: Chills, Myalgias. denies: Fever Cardiac: denies: Chest pain / pressure Respiratory: reports: Dyspnea, Cough, Wheezing GI: denies: Abdominal Pain, Nausea, Diarrhea : denies: Dysuria, Frequency Neurologic: reports: Generalized weakness. denies: Focal weakness, Numbness PD PAST MEDICAL HISTORY - Past Medical History Cardiovascular: Hypertension, High cholesterol Respiratory: COPD, Sleep apnea, CPAP use Neuro: None Endocrine/Autoimmune: Type 2 diabetes GI: GERD, Hemorrhoids : None HEENT: None Psych: None Musculoskeletal: Osteoarthritis, Other Derm: None - Past Surgical History Past Surgical History: Yes General: Cholecystectomy, Appendectomy, Colonoscopy Ortho: Arthroscopic surgery HEENT: Cataracts - Present Medications Home Medications: Ambulatory Orders Medication Instructions Recorded Confirmed Aspirin Chewable [[place] 81 mg PO DAILY 06/20/13 03/13/18 Aspirin] Multivitamin [Multi-Day Vitamins] 1 tab PO DAILY 06/20/13 03/13/18 [place]-3 Fatty Acids/Fish Oil [Fish 1 each PO BID 06/20/13 03/13/18 Oil 1,000 mg Capsule] Cetirizine [ZyrTEC] 10 mg PO DAILY 04/13/17 03/13/18 Fluticasone/Salmeterol [Advair 1 inh INH BID 04/13/17 03/13/18 250-50 Diskus] Pantoprazole Sodium [Protonix] 40 mg PO QDAC 04/13/17 03/13/18 Albuterol Sulfate [Proair Hfa 2 puffs INH Q4H PRN 03/13/18 03/13/18 Inhaler] Ezetimibe [Zetia] 10 mg PO DAILY #30 tablet 03/13/18 Furosemide 20 mg PO DAILY #30 tablet 03/13/18 Ipratropium/Albuterol [Combivent 1 puffs INH QID 03/13/18 03/13/18 Respimat] Metformin HCl [Metformin HCl ER] 500 mg PO BID 03/13/18 03/13/18 Nicotine 14 mg Patch [Nicoderm] 1 each TOP Q24H #7 patch 03/13/18 Nicotine 7 mg Patch [Nicoderm] 1 each TOP Q24H #7 patch 03/13/18 Spironolactone 25 mg PO DAILY #30 tablet 03/13/18 amLODIPine [Norvasc] 5 mg PO DAILY #30 tablet 03/13/18 traMADol [Ultram] 50 mg PO TID PRN 03/13/18 03/13/18 Amoxicillin 1,000 mg PO TID #42 capsule 05/07/20 Benzonatate [Tessalon] 100 mg PO Q6H PRN #25 capsule 05/07/20 dexAMETHasone [Decadron] 4 mg PO DAILY #5 tablet 05/07/20 - Allergies Allergies/Adverse Reactions: Allergies Allergy/AdvReac Type Severity Reaction Status Date / Time lisinopril Allergy Severe ANGIOEDEMA Verified 03/13/18 10:28 codeine Allergy Intermediate Cramps Verified 03/12/18 22:39 - Social History Does the pt smoke?: Yes Smoking Status: Current every day smoker Does the pt drink ETOH?: Yes Does the pt have substance abuse?: No - Immunizations Immunizations are current?: Yes - POLST Patient has POLST: No PD ED PE NORMAL - Vitals Vital signs reviewed: Yes - General General: Alert and oriented X 3, No acute distress, Well developed/nourished - HEENT HEENT: Moist mucous membranes, Pharynx benign - Neck Neck: Supple, no meningeal sign, No adenopathy - Cardiac Cardiac: RRR, No murmur - Respiratory Respiratory: Clear bilaterally (some end exp wheezing. ) - Abdomen Abdomen: Soft, Non tender - Derm Derm: Normal color, Warm and dry - Extremities Extremities: Normal ROM s pain, No edema, No calf tenderness / cord - Neuro Neuro: Alert and oriented X 3, No motor deficit, Normal speech Results - Vitals Vitals: Vital Signs - 24 hr 05/07/20 05/07/20 13:51 18:27 Temperature 36.9 C 36.6 C Heart Rate 64 50 L Respiratory 20 18 Rate Blood Pressure 132/73 H 136/59 H O2 Saturation 90 L 92 Oxygen O2 Source Room air - Labs Labs: Laboratory Tests 05/07/20 05/07/20 16:02 16:02 WBC 9.0 RBC 5.63 Hgb 15.2 Hct 47.2 MCV 83.8 MCH 27.0 MCHC 32.2 RDW 14.4 Plt Count 210 MPV 10.1 Neut # (Auto) 6.7 H Lymph # (Auto) 1.6 Morgan # (Auto) 0.5 Eos # (Auto) 0.2 Baso # (Auto) 0.1 Absolute Nucleated RBC 0.00 Nucleated RBC % 0.0 Sodium 138 Potassium 4.0 Chloride 102 Carbon Dioxide 27 Anion Gap 9.0 BUN 12 Creatinine 1.1 Estimated GFR (MDRD) 66 L Glucose 80 Calcium 9.5 Magnesium 1.8 Total Bilirubin 0.7 AST 25 ALT 30 Alkaline Phosphatase 63 Total Protein 7.7 Albumin 4.0 Globulin 3.7 Albumin/Globulin Ratio 1.1 - Rads (name of study) CXR Radiology: Prelim report reviewed (hilar mass right side. No infiltrates. ), See rad report chest CT Radiology: Prelim report reviewed (right middle lobe streaking, consider infiltrate. 12 mm hilar lymph node on right. No solid tumors. ), See rad report PD MEDICAL DECISION MAKING - ED course Complexity details: reviewed results (small infiltrate. Hilar adenopathy but not excess large. Will treat as pneumonia/bronchitis along with asthma exac. ), considered differential, d/w patient Departure - Departure Disposition: 01 Home, Self Care Clinical Impression: Bronchitis, Hemoptysis COPD (chronic obstructive pulmonary disease) Qualifiers: COPD type: unspecified COPD Qualified Code(s): J44.9 - Chronic obstructive pulmonary disease, unspecified Condition: Stable Record reviewed to determine appropriate education?: Yes Instructions: ED Hemoptysis Follow-Up: Hussein Mancia MD [Primary Care Provider] - Prescriptions: Amoxicillin 1,000 mg PO TID #42 capsule dexAMETHasone [Decadron] 4 mg PO DAILY #5 tablet Benzonatate [Tessalon] 100 mg PO Q6H PRN #25 capsule PRN Reason: Cough Comments: Showed what look like a mild early pneumonia as well as some adenopathy (swelling glands). No signs of tumors or such. Stay well-hydrated. Continue usual inhalers. 3 times a day for a week as prescribed. Decadron daily as prescribed as well. Add benzonatate as needed for cough. Some wisps of blood in with your mucus is okay in the short-term and should resolve. Recheck if significant amount of coughing blood or generally feeling worse. Discharge Date/Time: 05/07/20 18:27
[2020-05-07 16:10] LABS: BASOPHILS # (AUTO) 0.1 10^3/uL (0.0-0.1); BASOPHILS % (AUTO) 0.7 %; EOSINOPHILS # (AUTO) 0.2 10^3/uL (0.0-0.7); EOSINOPHILS % (AUTO) 2.2 %; HGB - HEMOGLOBIN 15.2 g/dL (14.0-18.0); LYMPHOCYTES # (AUTO) 1.6 10^3/uL (1.5-3.5); LYMPHOCYTES % (AUTO) 17.2 %; MEAN CORPUSCULAR HGB CONC 32.2 g/dL (32.0-36.0); MEAN CORPUSCULAR VOLUME 83.8 fL (80.0-94.0); MEAN PLATELET VOLUME 10.1 fL (7.4-11.4); MONOCYTES # (AUTO) 0.5 10^3/uL (0.0-1.0); MONOCYTES % (AUTO) 5.6 %; NEUTROPHILS # (AUTO) 6.7 10^3/uL (1.5-6.6); PLT - PLATELET COUNT 210 10^3/uL (130-450); RED BLOOD COUNT 5.63 10^6/uL (4.70-6.10); RED CELL DISTRIBUTION WIDTH 14.4 % (12.0-15.0)
[2020-05-07 16:20] LABS: ALBUMIN/GLOBULIN RATIO 1.1 (1.0-2.2); BILIRUBIN,TOTAL 0.7 mg/dL (0.2-1.0); CALCIUM 9.5 mg/dL (8.5-10.3); CREATININE 1.1 mg/dL (0.6-1.2); MAGNESIUM 1.8 mg/dL (1.7-2.8); TOTAL PROTEIN 7.7 g/dL (6.7-8.2)
[2020-05-07] MEDS ORDERED: BENZONATATE 100 MG CAPSULE PO STA (16:31)
[2020-05-07] MEDS ORDERED: DEXAMETHASONE 10 MG/ML VIAL IVP STA (16:31)
[2020-05-07] MEDS ORDERED: AMOXICILLIN 250 MG CAPSULE PO STA (16:31)
[2020-05-07] MEDS ORDERED: IOVERSOL 320 100 ML VIAL IVP ONE ×2 (16:44→17:15)
--- NOTE | 2020-05-07 17:36 | CT Report ---
PROCEDURE: CHEST W INDICATIONS: coughing with blood; hilar mass on CXR CONTRAST: IV CONTRAST: Optiray 320 ml: 100 PO CONTRAST: *NO PO CONTRAST TECHNIQUE: After the administration of intravenous contrast, 5 mm thick sections acquired from the pulmonary api adams to the posterior costophrenic angles. 7 mm thick coronal MIP reformats were acquired. For radia tion dose reduction, the following was used: automated exposure control, adjustment of mA and/or kV according to patient size. COMPARISON: Chest x-ray 05/07/2020, 11/15/2013 FINDINGS: Image quality: Excellent. Lungs and pleura: Linear right lower lobe opacities are noted. No pleural effusions or pneumothorax. Central and peripheral airways are patent and normal in caliber. Mediastinum: Heart size is normal. No pericardial effusion. Mildly enlarged mediastinal lymph nodes are present the largest in the subcarinal region measuring 11 mm. In addition, there is a right griselda r lymph node measuring 12 mm. No endobronchial lesions are identified. Thoracic aorta and central pul monary arteries are normal in size. Esophagus is normal in caliber. No hiatal hernia. Bones and chest wall: No suspicious bony lesions. No vertebral body compression fractures. No axil alfredo or supraclavicular adenopathy by size criteria. Thyroid gland is unremarkable. Abdomen: Visualized upper abdominal solid organs appear normal. Upper abdominal bowel loops are nor mal in caliber. IMPRESSION: 1. Linear right lower lobe opacities likely related to atelectasis and/or scarring. 2. 12 mm right hilar lymph node as well as borderline enlarged mediastinal lymph nodes. These could b e reactive in nature. Recommend interval follow-up as clinically indicated to document stability or e valuate progression. Reviewed by: Fanta Rosen MD on 05/07/2020 5:35 PM PST Approved by: Fanta Rosen MD on 05/07/2020 5:35 PM PST Station ID: [id number]
[2020-05-07 18:28] VITALS: BP 136/59
== END 2020-05-07 18:27 | disposition home or self-care (01) ==
LOC: ED 13:43
DX: J44.9 Chronic obstructive pulmonary disease, unspecified (principal); J45.901 Unspecified asthma with (acute) exacerbation; R04.2 Hemoptysis; R59.0 Localized enlarged lymph nodes; F17.200 Nicotine dependence, unspecified, uncomplicated; I10 Essential (primary) hypertension; E11.9 Type 2 diabetes mellitus without complications; Z79.84 Long term (current) use of oral hypoglycemic drugs; Z79.82 Long term (current) use of aspirin
CPT/HCPCS: 36415; 71046; 71260; 80053; 83735; 85025; 96374; 99284; A9270; Q9967; 83690

== ENCOUNTER 2020-06-17 07:38 | Outpatient (CLI) | payer MEDICARE, OTHER ==
--- NOTE | 2020-06-17 10:42 | XRAY Report ---
PROCEDURE: Chest 2 View X-Ray INDICATIONS: ABNORMAL CHEST X-RAY TECHNIQUE: 2 view(s) of the chest. COMPARISON: None. FINDINGS: Surgical changes and devices: None. Lungs and pleura: No pleural effusions or pneumothorax. Lungs are clear. Mediastinum: Mediastinal contours are normal. Heart size is normal. Bones and chest wall: No suspicious bony abnormalities. Soft tissues appear unremarkable. IMPRESSION: No acute cardiopulmonary process demonstrated radiographically. Reviewed by: Mark Child MD on 06/17/2020 9:40 AM [facility] Approved by: Mark Child MD on 06/17/2020 9:40 AM [facility] Station ID: [id number]
== END 2020-06-17 23:59 | disposition home or self-care (01) ==
LOC: DI.WCP 07:38
PROVIDERS: ATTEND Family Medicine
DX: J18.9 Pneumonia, unspecified organism (principal)

== ENCOUNTER 2020-06-22 06:21 | Day surgery (SDC) | payer MEDICARE, OTHER ==
[2020-06-22] MEDS ORDERED: LACTATED RINGERS 1,000 ML IV ONE (07:12)
[2020-06-22] MEDS ORDERED: MIDAZOLAM 2 MG/2 ML VIAL ONE ×2 (07:33→07:44)
[2020-06-22] MEDS ORDERED: fentaNYL 250 MCG/5 ML VIAL ONE (07:35)
[2020-06-22] MEDS ORDERED: LACTATED RINGERS 800 ML IV ONE (08:22)
[2020-06-22 08:37] VITALS: BP 134/80
== END 2020-06-22 06:22 | disposition home or self-care (01) ==
LOC: SDS 06:21
PROVIDERS: ATTEND Internal Medicine Gastroenterology
PROC: 0DBN8ZZ Excision of Sigmoid Colon, Via Natural or Artificial Opening Endoscopic (ICD-10-PCS; 2020-06-22)
PROC: 0DBN8ZZ Excision of Sigmoid Colon, Via Natural or Artificial Opening Endoscopic (ICD-10-PCS; 2020-06-22)
PROC: 0DBP8ZZ Excision of Rectum, Via Natural or Artificial Opening Endoscopic (ICD-10-PCS; principal; 2020-06-22 07:30)
DX: Z12.11 Encounter for screening for malignant neoplasm of colon (principal); K63.5 Polyp of colon; K62.1 Rectal polyp; K57.30 Diverticulosis of large intestine without perforation or abscess without bleeding; Z87.891 Personal history of nicotine dependence; J44.9 Chronic obstructive pulmonary disease, unspecified; I10 Essential (primary) hypertension; G47.30 Sleep apnea, unspecified; E11.9 Type 2 diabetes mellitus without complications; Z79.84 Long term (current) use of oral hypoglycemic drugs
CPT/HCPCS: 45380; 45385; J3010; J7120

== ENCOUNTER 2020-07-13 09:20 | Outpatient (CLI) | payer MEDICARE, OTHER ==
[2020-07-13 12:02] LABS: BASOPHILS # (AUTO) 0.1 10^3/uL (0.0-0.1); BASOPHILS % (AUTO) 0.7 %; EOSINOPHILS # (AUTO) 0.2 10^3/uL (0.0-0.7); EOSINOPHILS % (AUTO) 2.8 %; HGB - HEMOGLOBIN 15.1 g/dL (14.0-18.0); LYMPHOCYTES % (AUTO) 14.1 %; MEAN CORPUSCULAR HEMOGLOBIN 26.7 pg (27.0-31.0); MEAN CORPUSCULAR HGB CONC 31.6 g/dL (32.0-36.0); MEAN CORPUSCULAR VOLUME 84.5 fL (80.0-94.0); MONOCYTES # (AUTO) 0.4 10^3/uL (0.0-1.0); NEUTROPHILS # (AUTO) 5.5 10^3/uL (1.5-6.6); PLT - PLATELET COUNT 216 10^3/uL (130-450); RED BLOOD COUNT 5.66 10^6/uL (4.70-6.10); RED CELL DISTRIBUTION WIDTH 14.5 % (12.0-15.0); WHITE BLOOD COUNT 7.2 x10^3/uL (4.8-10.8)
[2020-07-13 12:27] LABS: CREATININE,URINE 19.6 mg/dL
[2020-07-13 12:29] LABS: MICROALBUMIN,URINE < 0.2 mg/dL (0-300.0)
[2020-07-13 12:57] LABS: HEMOGLOBIN A1c% 6.2 % (4.27-6.07)
[2020-07-13 13:23] LABS: ALBUMIN 3.9 g/dL (3.2-5.5); ALKALINE PHOSPHATASE 57 IU/L (42-121); ALT ALANINE AMINOTRANSFERASE 27 IU/L (10-60); AST ASPARTATE AMINOTRANSFERASE 23 IU/L (10-42); BILIRUBIN,TOTAL 0.5 mg/dL (0.2-1.0); BUN - BLOOD UREA NITROGEN 18 mg/dL (6-20); CALCIUM 9.4 mg/dL (8.5-10.3); CARBON DIOXIDE - CO2 23 mmol/L (21-32); CHLORIDE 109 mmol/L (101-111); CHOL/HDL RATIO 6.1 (<5.0); CHOLESTEROL 177 mg/dL; CREATININE 1.1 mg/dL (0.6-1.2); GLUCOSE 133 mg/dL (70-100); HDL CHOLESTEROL 29 mg/dL; LDL CHOLESTEROL,CALCULATED 123 mg/dL; LDL/HDL RATIO 4.2 (<3.6); SODIUM 141 mmol/L (135-145); TOTAL PROTEIN 7.7 g/dL (6.7-8.2); VLDL CHOLESTEROL 25 mg/dL
== END 2020-07-13 23:59 | disposition home or self-care (01) ==
LOC: LAB.WCP 09:20
PROVIDERS: ATTEND Internal Medicine
DX: I12.9 Hypertensive chronic kidney disease with stage 1 through stage 4 chronic kidney disease, or unspecified chronic kidney disease (principal); N18.9 Chronic kidney disease, unspecified; E11.9 Type 2 diabetes mellitus without complications; Z12.5 Encounter for screening for malignant neoplasm of prostate; Z13.29 Encounter for screening for other suspected endocrine disorder; E78.5 Hyperlipidemia, unspecified
CPT/HCPCS: 36415; 80053; 80061; 82043; 82570; 83036; 84443; 85025; G0103; 83721; 84153

== ENCOUNTER 2020-10-19 11:07 | Outpatient (CLI) | payer MEDICARE, OTHER ==
--- NOTE | 2020-10-19 14:30 | SLEEP CARE CONSULTATION ---
Information from patient questionnaire entered by Mikaela Prieto. I have reviewed and concur with the information entered by Mikaela Prieto. This document represents the service I personally performed and the decisions made by me, Deana Razo MD, [facility]. History of Present Illness Service Date and Time: 10/19/2020 1107 Previous diagnosis: Severe, Obstructive Sleep Apnea-Hypopnea Syndrome AHI: 38.1 Reason for follow up: annual (Last seen 10/2019) Equipment type: CPAP Equipment obtained from: [employer] Year and Where: [address] [facility] HPI additional information: To minimize the risk of COVID-19 exposure, the patient has requested and consented to this telephone visit. The patient also agrees to having his in surance billed. HPI: Mr. Reed was diagnosed to have severe (AHI 38.1) obstructive sleep apnea-hypopnea syndrome in June 2011 and returned today for his annual follow up of CPAP therapy. I reviewed his last visit notes. The patient obtains his CPAP equipment from [employer] in [place]. He needs his prescription updated. He uses a Dreamwear nasal mask. His compliance report was downloaded and reviewed with patient. He uses the device nightly for about 9 hrs. 52 min. as reflected on compliance report. He has 100.0% compliance of more than 4 hours of CPAP use a night for the [id number] days. He complains of difficulty getting back to sleep about once a week after using the bathroom. He denies dry nose, mouth or throat, headache, nasal congestion, epistaxis, facial soreness or aerophagia. His did not notice any snore at all on the CPAP. He thinks that the current pressure of 10 - 15 cmH2O seems just right. Average residual AHI is 1.1. Average large leak is 2 sec. On CPAP therapy he noticed he noticed that he sleeps better, awakens more refreshed and is more awake/alert during the day. He has not fallen asleep while driving or had an accident. He denies drowsy driving. CPAP Compliance Data - Data Reviewed with Patient Average duration of nightly device use: 9 h 52 min Compliance rate %: 99.4 Current pressure setting (cmH2O): 10-15 Humidity settin Heated hose settin Average residual AHI: 1.1 Average large leak: 2 sec Subjective Initial [place] Sleepiness Scale score: 9 (in 2016) Allergies and Home Medications Drug allergies reviewed: Yes Home medication list reviewed: Yes Review of Systems Review of systems same as previous: Yes Physical Exam Height: 5 ft 9.5 in Weight: 285 lb (per patient) Body Mass Index: 41.5 BMI Classification: Morbidly Obese Impression and Plan IMPRESSION: 1. Obstructive Sleep Apnea-Hypopnea Syndrome, severe, with the patient continuing to do well on nasal CPAP therapy. He has excellent compliance and significant clinical benefits. The current pressure appears effective and comfortable. Overall, he is very satisfied with treatment and plans to continue with it long-term. No adjustment is necessary today. PLAN: 1. Continue with autoCPAP set at 10 - 15 cm H2O. 2. Try to lose weight 3. Return in one year for follow up or earlier if there is any problem with the treatment. Follow up recommended for: Weight management Visit Type: Telehealth Video Video Type: VSee Time Spent with Patient (minutes): 15 Provider Statement: I spent 100% of the Telehealth Video Call with the patient with greater than 50% spent counseling the patient and coordination of care.
== END 2020-10-19 11:08 | disposition home or self-care (01) ==
LOC: SC 11:07
PROVIDERS: ATTEND Internal Medicine Pulmonary Disease
DX: G47.33 Obstructive sleep apnea (adult) (pediatric) (principal); E66.01 Morbid (severe) obesity due to excess calories; Z68.41 Body mass index [BMI] 40.0-44.9, adult

== ENCOUNTER 2020-10-21 08:00 | Outpatient (CLI) | payer MEDICARE, OTHER ==
[2020-10-21 12:19] LABS: ALT ALANINE AMINOTRANSFERASE 28 IU/L (10-60); BUN - BLOOD UREA NITROGEN 15 mg/dL (6-20); CALCIUM 9.2 mg/dL (8.5-10.3); CARBON DIOXIDE - CO2 24 mmol/L (21-32); CHLORIDE 104 mmol/L (101-111); CHOL/HDL RATIO 3.8 (<5.0); CHOLESTEROL 115 mg/dL; GFR - MDRD 73 (>89); GLUCOSE 117 mg/dL (70-100); HDL CHOLESTEROL 30 mg/dL; LDL CHOLESTEROL,CALCULATED 70 mg/dL; LDL/HDL RATIO 2.3 (<3.6); POTASSIUM 4.2 mmol/L (3.5-5.0); SODIUM 140 mmol/L (135-145); TRIGLYCERIDES 76 mg/dL; VLDL CHOLESTEROL 15 mg/dL
[2020-10-21 12:24] LABS: ESTIMATED AVERAGE GLUCOSE 137 mg/dL (70-100); HEMOGLOBIN A1c% 6.4 % (4.27-6.07)
== END 2020-10-21 23:59 | disposition home or self-care (01) ==
LOC: LAB.WCP 08:00
PROVIDERS: ATTEND Internal Medicine
DX: E11.42 Type 2 diabetes mellitus with diabetic polyneuropathy (principal)
CPT/HCPCS: 36415; 80048; 80061; 83036; 83721; 84460

== ENCOUNTER 2020-11-27 07:55 | Outpatient (CLI) | payer MEDICARE, OTHER ==
--- NOTE | 2020-11-27 15:32 | Ultrasound Report ---
PROCEDURE: Aorta Screening INDICATIONS: HIST OF SMOKING TECHNIQUE: Real time scanning was performed of the aorta and iliac arteries, with image documentatio n. COMPARISON: None FINDINGS: Aorta: Proximal aortic diameter measures 2.9 x 2.6 cm. Mid-aorta measures 2.4 x 1.9 cm. Distal aor tic diameter is 3.7 x 3.1 cm, with a length of 5.4 cm distally. Iliac arteries: Right common iliac artery measures 1.6 x 1.5 cm. Left common iliac artery measures 1.6 x 1.4 cm. IMPRESSION: 1. 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 Reviewed by: Fanta Rosen MD on 11/27/2020 3:31 PM PDT Approved by: Fanta Rosen MD on 11/27/2020 3:31 PM PDT Station ID: [id number]
== END 2020-11-27 07:56 | disposition home or self-care (01) ==
LOC: DI 07:55
PROVIDERS: ATTEND Internal Medicine
DX: Z12.2 Encounter for screening for malignant neoplasm of respiratory organs (principal); I77.819 Aortic ectasia, unspecified site; Z87.891 Personal history of nicotine dependence

== ENCOUNTER 2020-12-11 12:00 | Outpatient (CLI) | payer MEDICARE, OTHER ==
[2020-12-11] MEDS ORDERED: REGADENOSON 0.4 MG/5 ML SYRINGE IVP ONE ×2 (15:06→17:30)
[2020-12-11] MEDS ORDERED: AMINOPHYLLINE 500 MG/20 ML VIAL ONE (15:06)
--- NOTE | 2020-12-11 15:30 | CARDIAC PROCEDURE NOTE ---
Stress Test Report Service Date: 12/11/20 Ordering Provider: Dr Hussein Mancia Indication for Test: Dyspnea on exertion, hypertension Cardiac Risk Factors: Morbid obesity, male gender, diabetes mellitus, hypertension, hyperlipidemia, family history of heart disease, smoker. Type of Stress Test: Pharmacologic Stress Test with MPI Pharmacologic Agent: Lexiscan Procedure: After signing informed consent, the patient underwent a Lexiscan pharmaceutical stress test with nuclear myocardial perfusion imaging. Resting heart rate: 53 Peak HR: 68 Resting BP: 132/61 Peak BP: 137/68 Lexiscan was infused per protocol. The patient had brief flushing and shortness of breath with wheezing. He had no chest pain. Aminophylline 25 mg IV was given for reversal of symptoms. Oxygen saturation was 90% at rest, on room air. The patient was put on 2 L of oxygen for the test and O2 saturation was 92 - 93% on 2 L of oxygen during the test. Resting EKG: Sinus bradycardia, rate 53, left atrial enlargement, right IVCD. EKG at peak: No ST-segment or T-wave changes seen. Summary: 1) Abnormal resting EKG. 2) Ischemic changes by EKG criteria develop during this pharmaceutical stress test. 3) Oxygen desaturation was present before testing; at rest on room air, saturation was at 90%. He was put on 2 L of oxygen by n.c. for the test and saturations were 92 to 93%. 4) Nuclear images were reported separately and showed: Normal tracer distribution, no defects at rest or with stress to suggest myocardial ischemia or infarction, normal stress LVEF of 74%. IMPRESSION: 1) Significant oxygen desaturation on room air seen even before stress testing. 2) Normal stress test evaluating for coronary ischemia. 3) This patient's cardiac risk: Moderate. RECOMMENDATIONS: 1) Smoking cessation. 2) 6-min walk test to evaluate for Home O2 order. 3. Consider a Pulmonology referral.
[2020-12-11] MEDS ORDERED: AMINOPHYLLINE 500 MG/20 ML VIAL IVP ONE (17:31)
--- NOTE | 2020-12-11 17:40 | Nuclear Medicine Report ---
PROCEDURE: Rest and pharmacological stress myocardial perfusion SPECT with gated imaging and ejection fraction INDICATIONS: DYSPNEA ON EXERTION, HYPERTENSION/ LEXISCAN RADIOPHARMACEUTICAL: 14.1 mCi Tc-99m Myoview IV at rest and 41.4 mCi Tc-99m Myoview IV at peak exer cise. [id number] was performed. TECHNIQUE: Radiopharmaceutical was injected at peak stress test, and also at rest. SPECT images wer e obtained. SPECT myocardial perfusion images were displayed in short axis, horizontal long axis, an d vertical long axis views. Gated images were reviewed using [employer] software. COMPARISON: None available. FINDINGS: Raw data: There is good myocardial labeling by radiotracer. No significant motion artifacts. Lung- to-heart ratio is 0.32 (normal is less than 0.46 for tetrafosmin tracer). Left ventricle function: Gated images demonstrate normal left ventricle wall thickening. No segment al wall motion abnormality. No transient ischemic dilation; TID is 0.95 (normal less than 1.30). Th e left ventricle resting end-diastolic volume is normal. Left ventricle stress ejection fraction is 74%; normal values are above 45%. Myocardial perfusion: There is normal distribution of activity in the left and right ventricular roland cardium. Note is made of diaphragmatic attenuation artifact in the inferior wall. No perfusion defec ts to suggest myocardial infarct or ischemia. IMPRESSION: 1. Normal myocardial perfusion images. No perfusion defect to suggest myocardial ischemia or infarct. 2. Normal left ventricular volume and systolic function. 3. Please correlate with stress EKG report. PQRS ATTESTATIONS: Measure 322 - Is this imaging test primarily performed on a low-risk surgery patient for preoperative evaluation within 30 days preceding their low-risk non-cardiac surgery? Low-risk surgery is defined as cardiac or myocardial infarction less than 1%, including (but not limited to) endoscopic pr ocedures, superficial procedures, cataract surgery, and excisional breast surgery: Answer: No Measure 323 - Is this imaging test performed primarily for the monitoring of an asymptomatic patient who had percutaneous coronary intervention on the visit date or within 2 years of the visit date? An swer: No Measure 324 - Is this imaging test performed primarily for the initial detection and risk assessment on an asymptomatic, low coronary heart disease patient? Low CHD risk definition = clinicians should consider the maximum number of available patient factors used to estimate risk based on [place] (A TP III criteria), typically age, gender, diabetes, smoking status, and use of blood pressure medicati on, and integrate age appropriate estimates for missing elements, such as LDL or standard blood press ure. Answer: No Reviewed by: Neelima Rocha MD on 12/11/2020 5:38 PM PDT Approved by: Neelima Rocha MD on 12/11/2020 5:38 PM PDT Station ID: [id number]
== END 2020-12-11 12:01 | disposition home or self-care (01) ==
LOC: DI 12:00
PROVIDERS: ATTEND Internal Medicine
DX: R06.09 Other forms of dyspnea (principal); I10 Essential (primary) hypertension; E11.9 Type 2 diabetes mellitus without complications; R94.31 Abnormal electrocardiogram [ECG] [EKG]
CPT/HCPCS: 78452; 93017; A9500; J2785

== ENCOUNTER 2021-01-20 08:00 | Outpatient (CLI) | payer MEDICARE, OTHER ==
[2021-01-20 12:19] LABS: BASOPHILS # (AUTO) 0.1 10^3/uL (0.0-0.1); BASOPHILS % (AUTO) 0.9 %; EOSINOPHILS # (AUTO) 0.2 10^3/uL (0.0-0.7); EOSINOPHILS % (AUTO) 2.7 %; HCT - HEMATOCRIT 47.6 % (42.0-52.0); HGB - HEMOGLOBIN 15.1 g/dL (14.0-18.0); LYMPHOCYTES # (AUTO) 1.2 10^3/uL (1.5-3.5); LYMPHOCYTES % (AUTO) 17.4 %; MEAN CORPUSCULAR HEMOGLOBIN 26.5 pg (27.0-31.0); MEAN CORPUSCULAR HGB CONC 31.7 g/dL (32.0-36.0); MEAN CORPUSCULAR VOLUME 83.7 fL (80.0-94.0); MEAN PLATELET VOLUME 10.6 fL (7.4-11.4); MONOCYTES # (AUTO) 0.4 10^3/uL (0.0-1.0); MONOCYTES % (AUTO) 5.5 %; NEUTROPHILS # (AUTO) 5.1 10^3/uL (1.5-6.6); NEUTROPHILS % (AUTO) 73.2 %; PLT - PLATELET COUNT 223 10^3/uL (130-450); RED BLOOD COUNT 5.69 10^6/uL (4.70-6.10); RED CELL DISTRIBUTION WIDTH 14.2 % (12.0-15.0)
[2021-01-20 12:52] LABS: THYROID STIMULATING HORMONE 3.57 uIU/mL (0.34-5.60)
[2021-01-20 12:55] LABS: CREATININE,URINE 68.5 mg/dL; MICROALBUM/CREATININE RATIO,UR 16.1 ug/mg (<30.0); MICROALBUMIN,URINE 1.1 mg/dL (0-300.0)
[2021-01-20 12:56] LABS: ALBUMIN 4.1 g/dL (3.2-5.5); ALBUMIN/GLOBULIN RATIO 1.1 (1.0-2.2); ALKALINE PHOSPHATASE 56 IU/L (42-121); ALT ALANINE AMINOTRANSFERASE 28 IU/L (10-60); AST ASPARTATE AMINOTRANSFERASE 26 IU/L (10-42); BILIRUBIN,TOTAL 0.7 mg/dL (0.2-1.0); BUN - BLOOD UREA NITROGEN 14 mg/dL (6-20); CALCIUM 9.3 mg/dL (8.5-10.3); CARBON DIOXIDE - CO2 26 mmol/L (21-32); CHLORIDE 104 mmol/L (101-111); CHOL/HDL RATIO 4.1 (<5.0); CHOLESTEROL 110 mg/dL; CREATININE 1.1 mg/dL (0.6-1.2); GFR - MDRD 66 (>89); GLUCOSE 116 mg/dL (70-100); HDL CHOLESTEROL 27 mg/dL; LDL CHOLESTEROL,CALCULATED 66 mg/dL; LDL/HDL RATIO 2.4 (<3.6); POTASSIUM 4.3 mmol/L (3.5-5.0); SODIUM 140 mmol/L (135-145); TRIGLYCERIDES 87 mg/dL; VLDL CHOLESTEROL 17 mg/dL
[2021-01-20 14:16] LABS: ESTIMATED AVERAGE GLUCOSE 137 mg/dL (70-100); HEMOGLOBIN A1c% 6.4 % (4.27-6.07)
== END 2021-01-20 23:59 | disposition home or self-care (01) ==
LOC: LAB.WCP 08:00
PROVIDERS: ATTEND Family Medicine
DX: E11.42 Type 2 diabetes mellitus with diabetic polyneuropathy (principal)
CPT/HCPCS: 36415; 80053; 80061; 82043; 82570; 83036; 83721; 84443; 85025

== ENCOUNTER 2021-04-27 10:22 | Outpatient (CLI) | payer MEDICARE, OTHER ==
[2021-04-27 18:05] LABS: CALCIUM 9.6 mg/dL (8.5-10.3); POTASSIUM 4.4 mmol/L (3.5-5.0)
[2021-04-27 19:50] LABS: ESTIMATED AVERAGE GLUCOSE 137 mg/dL (70-100); HEMOGLOBIN A1c% 6.4 % (4.27-6.07)
== END 2021-04-27 23:59 | disposition home or self-care (01) ==
LOC: LAB.WCP 10:22
PROVIDERS: ATTEND Internal Medicine
DX: I10 Essential (primary) hypertension (principal); E11.42 Type 2 diabetes mellitus with diabetic polyneuropathy
CPT/HCPCS: 36415; 80048; 83036

== ENCOUNTER 2021-06-30 12:02 | Emergency (ER) | payer MEDICARE, OTHER ==
[2021-06-30 12:30] VITALS: BP 142/71
--- NOTE | 2021-06-30 12:32 | ED Physician Documentation ---
History of Present Illness - Stated complaint Stated Complaint: RIGHT FOOT PX - Chief complaint Chief Complaint: Ext Problem - History obtained from History obtained from: Patient - History of Present Illness Timing: How many days ago (4) Pain level max: 5 Pain level now: 4 - Additonal information Additional information: 71-year-old male, diabetic who presents to the emergency department with right ankle pain. He states he does not recall any injury but feels similar to when he used to sprained his ankles. Worse with walking, better with rest. Taking Motrin and Tylenol with relief at home. He states that his feet are always swollen, no more than usual. No skin changes. No fevers. No chills. Review of Systems Constitutional: denies: Fever, Chills GI: denies: Vomiting Neurologic: denies: Headache PD PAST MEDICAL HISTORY - Past Medical History Past Medical History: Yes Cardiovascular: Hypertension, High cholesterol Respiratory: COPD, Sleep apnea, CPAP use Neuro: None Endocrine/Autoimmune: Type 2 diabetes GI: GERD, Colon polyps, Hemorrhoids : None, Frequency HEENT: None Psych: None Musculoskeletal: Osteoarthritis, Other Derm: None - Past Surgical History Past Surgical History: Yes General: Cholecystectomy, Appendectomy, Colonoscopy Ortho: Arthroscopic surgery HEENT: Cataracts - Present Medications Home Medications: Ambulatory Orders Medication Instructions Recorded Confirmed Aspirin Chewable [[place] 81 mg PO DAILY 06/20/13 06/30/21 Aspirin] Multivitamin [Multi-Day Vitamins] 1 tab PO DAILY 06/20/13 06/30/21 [place]-3 Fatty Acids/Fish Oil [Fish 1 each PO BID 06/20/13 06/30/21 Oil 1,000 mg Capsule] Cetirizine [ZyrTEC] 10 mg PO DAILY 04/13/17 06/30/21 Fluticasone/Salmeterol [Advair 1 inh INH BID 04/13/17 06/30/21 250-50 Diskus] Pantoprazole Sodium [Protonix] 40 mg PO QDAC 04/13/17 06/30/21 Albuterol Sulfate [Proair Hfa 2 puffs INH Q4H PRN 03/13/18 06/30/21 Inhaler] Ezetimibe [Zetia] 10 mg PO DAILY #30 tablet 03/13/18 06/30/21 Furosemide 20 mg PO DAILY #30 tablet 03/13/18 06/30/21 Ipratropium/Albuterol [Combivent 1 puffs INH QID 03/13/18 06/30/21 Respimat] Metformin HCl [Metformin HCl ER] 500 mg PO BID 03/13/18 06/30/21 Spironolactone 25 mg PO DAILY #30 tablet 03/13/18 06/30/21 amLODIPine [Norvasc] 5 mg PO DAILY #30 tablet 03/13/18 06/30/21 traMADol [Ultram] 50 mg PO TID PRN 03/13/18 06/30/21 Benzonatate [Tessalon] 100 mg PO Q6H PRN #25 capsule 05/07/20 06/30/21 Dulaglutide [Trulicity] 0.75 mg SQ 06/30/21 - Allergies Allergies/Adverse Reactions: Allergies Allergy/AdvReac Type Severity Reaction Status Date / Time lisinopril Allergy Severe ANGIOEDEMA Verified 06/30/21 12:30 codeine Allergy Intermediate Cramps Verified 06/30/21 12:30 - Social History Does the pt smoke?: Yes Smoking Status: Current every day smoker Does the pt drink ETOH?: Yes Does the pt have substance abuse?: No - Immunizations Immunizations are current?: Yes - POLST Patient has POLST: No PD ED PE NORMAL - Vitals Vital signs reviewed: Yes - General General: Alert and oriented X 3, No acute distress - HEENT HEENT: Moist mucous membranes - Derm Derm: Warm and dry - Extremities Extremities: Other (Right lower extremity - No tenderness over the foot, fifth metatarsal, toes, plantar aspect. He is tender along the medial aspect of the tibia, just above the ankle. This reproduces his pain. No tenderness over the bilateral malleoli. Neurovascularly intact. no swelling. no skin changes.) - Neuro Neuro: Alert and oriented X 3 Results - Vitals Vitals: Vital Signs - 24 hr 06/30/21 12:26 Temperature 36.6 C Heart Rate 74 Respiratory 20 Rate Blood Pressure 142/71 H O2 Saturation 93 Oxygen O2 Source Nasal cannula - Rads (name of study) R ankle xray Radiology: Final report received, EMP read contemporaneously, See rad report PD MEDICAL DECISION MAKING - ED course Complexity details: reviewed results, re-evaluated patient, considered differential, d/w patient ED course: 71-year-old male presents to the emergency department with right ankle pain. Most of the pain is on the medial aspect of the ankle, just above the medial malleolus. This does not correlate to the possible lucency seen on x-ray. Will place in a gel splint for comfort. Ambulating well. Declines pain medication for home. Patient counseled regarding signs and symptoms for which I believe and urgent re-evaluation would be necessary. Patient with good understanding of and agreement to plan and is comfortable going home at this time This document was made in part using voice recognition software. While efforts are made to proofread this document, sound alike and grammatical errors may occur. IMPRESSION: Ill-defined nondisplaced lucency at the posterior fibula with adjacent calcification seen only on lateral view. While this could be artifactual, fracture cannot be excluded and recommend correlation of point tenderness within this region as well as short interval imaging follow-up in 7-10 days. Departure - Departure Disposition: 01 Home, Self Care Clinical Impression: Sprain of ankle, right Qualifiers: Encounter type: initial encounter Involved ligament of ankle: unspecified ligament Qualified Code(s): S93.401A - Sprain of unspecified ligament of right ankle, initial encounter Condition: Good Instructions: ED Sprain Ankle Follow-Up: Hussein Mancia MD [Primary Care Provider] - Comments: Please follow-up with your doctor in 1 week for further care. Return if you worsen. If you are still having pain in 1 week, they want to repeat your x-ray. Continue Motrin or Tylenol as needed for pain.
--- NOTE | 2021-06-30 13:02 | XRAY Report ---
PROCEDURE: Ankle 3 View RT INDICATIONS: R ankle pain, no known injury TECHNIQUE: 3 views of the ankle were acquired. COMPARISON: None FINDINGS: Bones: There is an ill-defined lucency along the posterior aspect of the fibula with adjacent calcifi cation seen only on lateral view. Ankle mortise is normally aligned. No suspicious bony lesions. Ca lcaneal spur is present. Soft tissues: Mild lateral malleoli are edema. Achilles tendon appears normal. IMPRESSION: Ill-defined nondisplaced lucency at the posterior fibula with adjacent calcification see n only on lateral view. While this could be artifactual, fracture cannot be excluded and recommend co rrelation of point tenderness within this region as well as short interval imaging follow-up in 7-10 days. Reviewed by: Fanta Rosen MD on 06/30/2021 1:00 PM PST Approved by: Fanta Rosen MD on 06/30/2021 1:00 PM PST Station ID: [id number]
== END 2021-06-30 13:40 | disposition home or self-care (01) ==
LOC: ED 12:02
DX: S93.401A Sprain of unspecified ligament of right ankle, initial encounter (principal); X58.XXXA Exposure to other specified factors, initial encounter; I10 Essential (primary) hypertension; E11.9 Type 2 diabetes mellitus without complications; Z79.899 Other long term (current) drug therapy; F17.200 Nicotine dependence, unspecified, uncomplicated
CPT/HCPCS: 99282; 99283

== ENCOUNTER 2021-07-16 10:33 | Outpatient (CLI) | payer MEDICARE, OTHER ==
--- NOTE | 2021-07-16 11:15 | SLEEP CARE CONSULTATION ---
Information from patient questionnaire entered by Gaudencio Bojorquez MA. I have reviewed and concur with the information entered by Gaudencio Bojorquez MA. This document represents the service I personally performed and the decisions made by , Alicia Townsend ARNP. History of Present Illness Service Date and Time: 07/16/2021 1033 Previous diagnosis: Severe, Obstructive Sleep Apnea-Hypopnea Syndrome AHI: 38.1 Reason for follow up: other (9 MONTH F/U, TRANSFER TO [facility]) Equipment type: CPAP Equipment obtained from: Other ([facility]; wants) Mask style: Nasal (cushion) Mask brand: Respironics (Dreamwear) Backup mask available: Yes (old mask) Prior sleep studies: Yes Year and Where: 2010 [facility] HPI additional information: RON CRONIN was diagnosed to have severe, AHI 38.1, obstructive sleep apnea- hypopnea syndrome and returned today for CPAP therapy 9 month follow-up. Sleep Study - Results Year and Where: 2010 [facility] CPAP Compliance Data - Data Reviewed with Patient Average duration of nightly device use: 9 HOURS 50 MINUTES Compliance rate %: 100 Current pressure setting (cmH2O): 10-15 Humidity settin Heated hose settin Average residual AHI: 1.1 Average large leak: 0 Subjective Patient concerns: reports: dry mouth, nose, throat (sometimes, with winter weather). denies: aerophagia, mask discomfort, air blowing in eyes, mask leak noise, condensation in mask/hose, nasal congestion, epistaxis, other Observed to snore while using device: No Current pressure setting perceived as: comfortable On therapy, patient: reports: sleeping better, awakening more refreshed, being more awake and alert during the day, more rested overall. denies: drowsiness while driving Initial [place] Sleepiness Scale score: 9 (in 2015) Current [place] Sleepiness Scale score: 7 (2021) Allergies and Home Medications Known drug allergies: Yes Drug allergies reviewed: Yes Home medication list reviewed: Yes Allergy and home medication list: Bydureon Bcise changed to Trulicity Review of Systems Review of systems same as previous: Yes (no changes) Physical Exam Vital signs obtained and entered by: Anum BOJORQUEZ CMA AALISA Blood Pressure: 137/97 (LEFT, PULSE 57) Heart Rate: 61 O2 Saturation: 91 (WITH PAPER MASK AND NASAL CANULA O2) Height: 5 ft 9.5 in Weight: 273 lb 13.791 oz (WITH CLOTHES) Body Mass Index: 39.8 BMI Classification: Obese Impression and Plan 1. Obstructive Sleep Apnea-Hypopnea Syndrome, severe, with excellent treatment compliance and good apnea control. On CPAP therapy, the patient has better sleep quality and is more rested overall. Patient would like to change his DME supplier to [facility] since he already deals with them for his oxygen needs. He is on 2 L/NC. A DWO prescription will then be made. I will have my lean manufacturing coordinator fax the order to his new DME choice. Patient advised to contact this office if further supply problems. Patient has a Dreamstation. Patient has already registered their device for the recall. Patient denies any black particles seen in machine or hoses, any unusual odors coming from device. Patient has not experienced any physical symptoms such as upper airway irritation, headache, skin or eye irritation, asthma, nausea/vomiting, difficulty breathing or chest pain. If patient is not able to sleep due to waking up choking, gasping for air or other respiratory distress that they may decide to continue using it until it is either replaced or repaired. He would also like to update his CPAP, he states it is over 5 years old. Thus, the CPAP will be updated. A DWO prescription will be made. Compliance guidelines for new device and follow up discussed. Patient voiced understanding and agreement with plan. Patient's apnea severity and rationale for treatment to reduce apnea, improve sleep quality and reduce cardiovascular and cerebrovascular events was reviewed. I also reviewed the benefit of consistent device use of CPAP for hypertension and diabetes. Patient BMI is 39.8. Obesity increases the risk of apnea, CPAP pressure requirements and overall health risks especially cardiovascular and diabetes. Patient was encouraged to lose weight for their overall health and to reduce apneas. * Continue auto CPAP pressure at 10-15 cmH2O * Update device * Transfer DME * Notify me if snoring with mask or feeling that the pressure is too much or too little * Attempt to lose weight * Call this office if any problems using CPAP * Return for follow up one month after obtaining new device, or sooner if concerns arise Counseling Topics: Spare mask, Weight loss health impact Visit Type: In Office Time Spent with Patient (minutes): 28 Provider Statement: I spent 100% of the Face to Face Visit with the patient with greater than 50% spent counseling the patient and coordination of care.
[2021-07-16 11:16] VITALS: BP 137/97
== END 2021-07-16 10:34 | disposition home or self-care (01) ==
LOC: SC 10:33
PROVIDERS: ATTEND Nurse Practitioner Family
DX: G47.33 Obstructive sleep apnea (adult) (pediatric) (principal); E66.9 Obesity, unspecified; Z68.39 Body mass index [BMI] 39.0-39.9, adult
CPT/HCPCS: 99213; G0463; 99212

== ENCOUNTER 2021-07-29 09:23 | Outpatient (CLI) | payer MEDICARE, OTHER ==
--- NOTE | 2021-07-29 16:55 | CT Report ---
PROCEDURE: LOWER EXTREMITY WO - RT INDICATIONS: RIGHT ANKLE PAIN TECHNIQUE: Noncontrast 1 mm axial sections acquired of the right ankle, with coronal and sagittal reformats. COMPARISON: Ankle radiograph dated 06/30/2021. FINDINGS: Image quality: Excellent. Bones: Moderate osteoarthritic changes are noted throughout midfoot and hindfoot joints with joint s pace narrowing, subchondral sclerosis and small marginal osteophyte formation. No acute fracture or d islocation. No suspicious intraosseous lesion. Well-defined plantar calcaneal enthesophyte is seen. Soft tissues: There is suggestion of small to moderate tibiotalar and subtalar joint effusion. Amorp hous calcifications are noted involving posterior tibiotalar joint capsule. No other abnormal soft ti ssue calcification is seen. No gross intra-articular loose bodies. Achilles tendon is intact. No full -thickness extensor, flexor, peroneus tendon rupture. Suggestion of thickened plantar fascia at its c alcaneal insertion may indicate plantar fasciitis. IMPRESSION: 1. Moderate midfoot and hindfoot joint osteoarthritis. No fracture or dislocation. No suspicious intr aosseous lesion. 2. Amorphous calcifications involving posterior tibiotalar joint capsule which can be seen contributi ng to posterior ankle impingement, suggest clinical correlation. 3. Small to moderate amount of joint effusion, no calcified intra-articular loose bodies. 4. Well-defined plantar calcaneal enthesophyte with questionable mild thickening of plantar fascia at its calcaneal insertion suggestive clinical correlation for possible plantar fasciitis. Reviewed by: Lloyd Sinclair MD on 07/29/2021 4:54 PM PST Approved by: Lloyd Sinclair MD on 07/29/2021 4:54 PM PST Station ID: [id number]
== END 2021-07-29 09:24 | disposition home or self-care (01) ==
LOC: DI 09:23
PROVIDERS: ATTEND Internal Medicine
DX: M19.071 Primary osteoarthritis, right ankle and foot (principal); R93.6 Abnormal findings on diagnostic imaging of limbs; M25.471 Effusion, right ankle; M77.31 Calcaneal spur, right foot

== ENCOUNTER 2021-08-31 10:46 | Outpatient (CLI) | payer MEDICARE, OTHER ==
[2021-08-31 18:19] LABS: ALBUMIN 4.2 g/dL (3.2-5.5); ALBUMIN/GLOBULIN RATIO 1.1 (1.0-2.2); ALKALINE PHOSPHATASE 54 IU/L (42-121); ALT ALANINE AMINOTRANSFERASE 29 IU/L (10-60); AST ASPARTATE AMINOTRANSFERASE 25 IU/L (10-42); BILIRUBIN,TOTAL 0.7 mg/dL (0.2-1.0); BUN - BLOOD UREA NITROGEN 15 mg/dL (6-20); CALCIUM 9.7 mg/dL (8.5-10.3); CARBON DIOXIDE - CO2 24 mmol/L (21-32); CHLORIDE 102 mmol/L (101-111); CHOL/HDL RATIO 3.6 (<5.0); CHOLESTEROL 115 mg/dL; GFR - MDRD 73 (>89); GLUCOSE 116 mg/dL (70-100); HDL CHOLESTEROL 32 mg/dL; LDL CHOLESTEROL,CALCULATED 65 mg/dL; POTASSIUM 4.3 mmol/L (3.5-5.0); SODIUM 138 mmol/L (135-145); TRIGLYCERIDES 89 mg/dL; VLDL CHOLESTEROL 18 mg/dL
[2021-08-31 18:23] LABS: BASOPHILS # (AUTO) 0.1 10^3/uL (0.0-0.1); BASOPHILS % (AUTO) 0.6 %; EOSINOPHILS # (AUTO) 0.2 10^3/uL (0.0-0.7); EOSINOPHILS % (AUTO) 1.8 %; HCT - HEMATOCRIT 48.7 % (42.0-52.0); HGB - HEMOGLOBIN 15.3 g/dL (14.0-18.0); LYMPHOCYTES # (AUTO) 1.2 10^3/uL (1.5-3.5); LYMPHOCYTES % (AUTO) 13.8 %; MEAN CORPUSCULAR HEMOGLOBIN 26.3 pg (27.0-31.0); MEAN CORPUSCULAR HGB CONC 31.4 g/dL (32.0-36.0); MEAN CORPUSCULAR VOLUME 83.7 fL (80.0-94.0); MEAN PLATELET VOLUME 11.2 fL (7.4-11.4); MONOCYTES # (AUTO) 0.5 10^3/uL (0.0-1.0); MONOCYTES % (AUTO) 5.7 %; NEUTROPHILS # (AUTO) 6.7 10^3/uL (1.5-6.6); NEUTROPHILS % (AUTO) 77.9 %; PLT - PLATELET COUNT 215 10^3/uL (130-450); RED BLOOD COUNT 5.82 10^6/uL (4.70-6.10); RED CELL DISTRIBUTION WIDTH 14.3 % (12.0-15.0); WHITE BLOOD COUNT 8.6 x10^3/uL (4.8-10.8)
[2021-08-31 18:26] LABS: CREATININE,URINE 36.6 mg/dL; MICROALBUM/CREATININE RATIO,UR 19.1 ug/mg (<30.0); MICROALBUMIN,URINE 0.7 mg/dL (0-300.0)
[2021-08-31 19:56] LABS: ESTIMATED AVERAGE GLUCOSE 134 mg/dL (70-100); HEMOGLOBIN A1c% 6.3 % (4.27-6.07)
== END 2021-08-31 10:47 | disposition home or self-care (01) ==
LOC: LAB.N 10:46
PROVIDERS: ATTEND Internal Medicine
DX: E11.42 Type 2 diabetes mellitus with diabetic polyneuropathy (principal); E78.5 Hyperlipidemia, unspecified; Z12.5 Encounter for screening for malignant neoplasm of prostate; I10 Essential (primary) hypertension
CPT/HCPCS: 36415; 80053; 80061; 82043; 82570; 83036; 85025; G0103; 83721; 84153

== ENCOUNTER 2021-09-21 10:02 | Outpatient (CLI) | payer MEDICARE, OTHER ==
--- NOTE | 2021-09-21 11:10 | Ultrasound Report ---
PROCEDURE: Retroperitoneal Limited INDICATIONS: AAA TECHNIQUE: Real time scanning was performed of the aorta and iliac arteries, with image documentatio n. COMPARISON: November 27, 2020 FINDINGS: Aorta: Proximal aortic diameter measures 2.7 x 2.8 cm. Mid-aorta measures 2.1 x 2.2 cm. Distal aor tic diameter is 3.2 x 3.1 cm; previously measured 3.7 x 3.1 cm Iliac arteries: Right common iliac artery measures 1.1 x 1.2 cm. Left common iliac artery measures 1.2 x 1.2 cm. IMPRESSION: 1. Minimal aneurysmal dilatation of the distal aorta as detailed above. Consider CT imaging for furth er evaluation. Reviewed by: Delmer Abbott MD on 09/21/2021 11:08 AM PDT Approved by: Delmer Abbott MD on 09/21/2021 11:08 AM PDT Station ID: [id number]
== END 2021-09-21 10:03 | disposition home or self-care (01) ==
LOC: DI 10:02
PROVIDERS: ATTEND Internal Medicine
DX: I71.4 Abdominal aortic aneurysm, without rupture (principal)

== ENCOUNTER 2021-12-27 10:43 | Outpatient (CLI) | payer MEDICARE, OTHER ==
[2021-12-27 17:58] LABS: CALCIUM 9.4 mg/dL (8.5-10.3); CREATININE 1.1 mg/dL (0.6-1.2); POTASSIUM 4.4 mmol/L (3.5-5.0)
[2021-12-27 18:47] LABS: ESTIMATED AVERAGE GLUCOSE 131 mg/dL (70-100); HEMOGLOBIN A1c% 6.2 % (4.27-6.07)
== END 2021-12-27 10:44 | disposition home or self-care (01) ==
LOC: LAB.N 10:43
PROVIDERS: ATTEND Internal Medicine
DX: E11.42 Type 2 diabetes mellitus with diabetic polyneuropathy (principal)
CPT/HCPCS: 36415; 80048; 83036

== ENCOUNTER 2022-06-10 12:01 | Outpatient (CLI) | payer MEDICARE, OTHER ==
[2022-06-10 18:03] LABS: BASOPHILS # (AUTO) 0.1 10^3/uL (0.0-0.1); BASOPHILS % (AUTO) 0.7 %; EOSINOPHILS # (AUTO) 0.3 10^3/uL (0.0-0.7); HCT - HEMATOCRIT 48.2 % (42.0-52.0); HGB - HEMOGLOBIN 14.9 g/dL (14.0-18.0); LYMPHOCYTES # (AUTO) 1.2 10^3/uL (1.5-3.5); LYMPHOCYTES % (AUTO) 12.9 %; MEAN CORPUSCULAR HEMOGLOBIN 26.2 pg (27.0-31.0); MEAN CORPUSCULAR HGB CONC 30.9 g/dL (32.0-36.0); MEAN CORPUSCULAR VOLUME 84.9 fL (80.0-94.0); MEAN PLATELET VOLUME 10.9 fL (7.4-11.4); MONOCYTES # (AUTO) 0.5 10^3/uL (0.0-1.0); MONOCYTES % (AUTO) 5.6 %; NEUTROPHILS % (AUTO) 77.6 %; PLT - PLATELET COUNT 234 10^3/uL (130-450); RED BLOOD COUNT 5.68 10^6/uL (4.70-6.10); RED CELL DISTRIBUTION WIDTH 14.4 % (12.0-15.0)
[2022-06-10 18:43] LABS: ALBUMIN 4.1 g/dL (3.2-5.5); ALBUMIN/GLOBULIN RATIO 1.1 (1.0-2.2); ALKALINE PHOSPHATASE 61 IU/L (42-121); ALT ALANINE AMINOTRANSFERASE 24 IU/L (10-60); AST ASPARTATE AMINOTRANSFERASE 25 IU/L (10-42); BILIRUBIN,TOTAL 0.5 mg/dL (0.2-1.0); BUN - BLOOD UREA NITROGEN 15 mg/dL (6-20); CALCIUM 9.4 mg/dL (8.5-10.3); CARBON DIOXIDE - CO2 28 mmol/L (21-32); CHLORIDE 103 mmol/L (101-111); CHOL/HDL RATIO 3.4 (<5.0); CHOLESTEROL 110 mg/dL; GFR - MDRD 73 (>89); GLUCOSE 92 mg/dL (70-100); HDL CHOLESTEROL 32 mg/dL; LDL CHOLESTEROL,CALCULATED 65 mg/dL; POTASSIUM 4.5 mmol/L (3.5-5.0); SODIUM 140 mmol/L (135-145); TRIGLYCERIDES 66 mg/dL; VLDL CHOLESTEROL 13 mg/dL
[2022-06-10 18:50] LABS: CREATININE,URINE 56.6 mg/dL; MICROALBUM/CREATININE RATIO,UR 19.4 ug/mg (<30.0); MICROALBUMIN,URINE 1.1 mg/dL (0-300.0)
[2022-06-10 21:13] LABS: ESTIMATED AVERAGE GLUCOSE 137 mg/dL (70-100); HEMOGLOBIN A1c% 6.4 % (4.27-6.07)
== END 2022-06-10 12:02 | disposition home or self-care (01) ==
LOC: LAB.N 12:01
PROVIDERS: ATTEND Internal Medicine
DX: E11.42 Type 2 diabetes mellitus with diabetic polyneuropathy (principal); E78.5 Hyperlipidemia, unspecified; J44.9 Chronic obstructive pulmonary disease, unspecified
CPT/HCPCS: 36415; 80053; 80061; 82043; 82570; 83036; 83721; 85025

== ENCOUNTER 2022-06-14 12:29 | Outpatient (CLI) | payer MEDICARE, OTHER ==
--- NOTE | 2022-06-14 16:20 | XRAY Report ---
PROCEDURE: Knee 3 View LT INDICATIONS: DEGENERATIVE JOINT DISEASE TECHNIQUE: 3 views of the left knee(s) were acquired. COMPARISON: None. FINDINGS: Bones: No fractures or dislocations. No suspicious bony lesions. Moderate tricompartmental osteophy tic degenerative changes with marginal osteoarthritis and mild joint space narrowing. Soft tissues: No joint effusion. Chondrocalcinosis. IMPRESSION: Moderate left knee tricompartmental osteoarthritis. Reviewed by: Queta Horan MD, PhD on 06/14/2022 4:19 PM PST Approved by: Queta Horan MD, PhD on 06/14/2022 4:19 PM PST Station ID: [id number]
== END 2022-06-14 12:30 | disposition home or self-care (01) ==
LOC: DI 12:29
PROVIDERS: ATTEND Internal Medicine
DX: M17.12 Unilateral primary osteoarthritis, left knee (principal)

== ENCOUNTER 2022-06-21 10:12 | Outpatient (CLI) | payer MEDICARE, OTHER ==
--- NOTE | 2022-06-21 12:08 | MRI Report ---
PROCEDURE: KNEE WO - LT INDICATIONS: DJD LEFT KNEE TECHNIQUE: Noncontrast sagittal PD fast spin echo and T2 fast spin echo with fat saturation, sagittal 3-D spoile d GE with fat saturation; coronal T1 spin echo and PD fast spin echo with fat saturation, and axial P D fast spin echo with fat saturation through the knee. COMPARISON: Left knee radiographs 06/14/2022 FINDINGS: Image quality: Excellent. Anterior cruciate ligament: Mild mucoid degeneration of the anterior cruciate ligament. Posterior pe rinephric cruciate cysts are seen measuring up to 12 x 4 x 9 mm. The bulk of the anterior cruciate li gament fibers are intact. Posterior cruciate ligament: Intact. Medial collateral ligament: Intact. Lateral collateral ligament: Intact. Medial meniscus: Horizontal oblique tearing of the medial meniscus is seen involving the posterior h orn and body extending to the mid to outer third of the tibial articular surface. A small meniscal fl ap is seen partially extending into the medial tibial gutter. Lateral meniscus: Horizontally tearing of the lateral meniscus at the junction of the posterior horn and body extending to the inner third of the femoral articular surface. There also appears to be obl ique tearing at the anterior horn of the lateral meniscus extending to the anterior root attachment w ith an anterior parameniscal cyst measuring approximately 4 x 3 x 20 mm. Medial and lateral tendons: The semimembranosus tendon insertions appear intact. Visualized portion s of the pes anserinus tendons appear normal. The popliteus tendon appears intact. Iliotibial band appears normal. Anterior structures: Mild patellar tendinosis. The distal quadriceps tendon is intact. Patellar align ment is normal. No femoral trochlear dysplasia or ventral trochlear prominence. No edema in the inf rapatellar fat pad. Bones: No acute trabecular bone injury or fracture. Medial femorotibial cartilage: Mild to moderate partial-thickness cartilage thinning in the weightbe aring portion of the medial femorotibial compartment. Lateral femorotibial cartilage: Mild surface cartilage irregularity in the posterior weightbearing p ortion of the lateral femoral condyle. Patellofemoral cartilage: Deep cartilage fissuring is seen at the median ridge and lateral facet of the patella with subchondral cystic changes. There is mild partial thickness cartilage irregularity i n the femoral trochlea. Soft tissues: There is a small joint effusion. There is no medial popliteal cyst. Small amount of f luid is seen tracking along the popliteus tendon sheath. There is nonspecific prepatellar subcutaneou s soft tissue edema. Generalized grade 2 fatty infiltration of the musculature surrounding the knee i s noted. The musculature surrounding the knee is normal in bulk. IMPRESSION: 1.Complex tearing of the lateral meniscus with horizontal oblique component at the anterior and poste rior horns including involvement of the anterior root attachment. The meniscal body appears mildly di minutive. There is a tubular anterior parameniscal cyst. 2.Horizontal oblique tearing of the medial meniscus involving the posterior horn and body extending t o the mid to outer third of the tibial articular surface. Suspected small meniscal flap component ext ending into the medial tibial gutter. 3.Mild circumferential degenerative changes including grade II to III chondromalacia in all 3 compart ments and cartilage fissuring anteriorly. 4.Mild patellar tendinosis. 5.Small joint effusion. Reviewed by: Stanislav Roberts MD on 06/21/2022 12:07 PM PST Approved by: Stanislav Roberts MD on 06/21/2022 12:07 PM PST Station ID: [id number]
== END 2022-06-21 10:13 | disposition home or self-care (01) ==
LOC: DI 10:12
PROVIDERS: ATTEND Internal Medicine
DX: M17.12 Unilateral primary osteoarthritis, left knee (principal); S83.272A Complex tear of lateral meniscus, current injury, left knee, initial encounter; S83.242A Other tear of medial meniscus, current injury, left knee, initial encounter; M94.262 Chondromalacia, left knee; M25.462 Effusion, left knee; M67.962 Unspecified disorder of synovium and tendon, left lower leg

== ENCOUNTER 2022-10-07 14:26 | Outpatient (CLI) | payer MEDICARE, OTHER ==
--- NOTE | 2022-10-07 17:18 | XRAY Report ---
PROCEDURE: SI Joints INDICATIONS: SACROILIAC JOINT PAIN TECHNIQUE: 3 views of the sacroiliac joints were acquired. COMPARISON: None FINDINGS: Bones: No bony erosions or ankylosis. No suspicious bony lesions. No fractures. Mild subchondral s clerosis noted bilaterally Soft tissues: Overlying bowel gas pattern is normal. No suspicious soft tissue densities. IMPRESSION: Mild degenerative subchondral sclerosis, bilaterally. No erosions or ankylosis Reviewed by: Valentin Houston MD on 10/07/2022 4:17 PM WALI Approved by: Valentin Houston MD on 10/07/2022 4:17 PM AKMAYLIN Station ID: [id number]
== END 2022-10-07 14:27 | disposition home or self-care (01) ==
LOC: DI 14:26
PROVIDERS: ATTEND Internal Medicine
DX: M53.3 Sacrococcygeal disorders, not elsewhere classified (principal); M85.88 Other specified disorders of bone density and structure, other site

== ENCOUNTER 2022-11-02 18:33 | Emergency (ER) | payer MEDICARE, OTHER ==
[2022-11-02 18:41] VITALS: BP 133/64
--- NOTE | 2022-11-02 19:02 | ED Physician Documentation ---
History of Present Illness - Stated complaint Stated Complaint: LT MIDDLE FINGER LAC - Chief complaint Chief Complaint: Laceration - Additonal information Additional information: 72-year-old male presents emergency department for evaluation of a laceration over PIP joint of left middle finger sustained when using a paring knife at home. Up-to-date tetanus. Bleeding controlled with pressure. Review of Systems Skin: reports: Laceration (s) PD PAST MEDICAL HISTORY - Past Medical History Cardiovascular: Hypertension, High cholesterol Respiratory: COPD, Sleep apnea, CPAP use Neuro: None Endocrine/Autoimmune: Type 2 diabetes GI: GERD, Colon polyps, Hemorrhoids : None, Frequency HEENT: None Psych: None Musculoskeletal: Osteoarthritis, Other Derm: None - Past Surgical History Past Surgical History: Yes General: Cholecystectomy, Appendectomy, Colonoscopy Ortho: Arthroscopic surgery HEENT: Cataracts - Present Medications Home Medications: Ambulatory Orders Medication Instructions Recorded Confirmed Aspirin Chewable [[place] 81 mg PO DAILY 06/20/13 06/30/21 Aspirin] Multivitamin [Multi-Day Vitamins] 1 tab PO DAILY 06/20/13 06/30/21 [place]-3 Fatty Acids/Fish Oil [Fish 1 each PO BID 06/20/13 06/30/21 Oil 1,000 mg Capsule] Cetirizine [ZyrTEC] 10 mg PO DAILY 04/13/17 06/30/21 Fluticasone/Salmeterol [Advair 1 inh INH BID 04/13/17 06/30/21 250-50 Diskus] Pantoprazole Sodium [Protonix] 40 mg PO QDAC 04/13/17 06/30/21 Albuterol Sulfate [Proair Hfa 2 puffs INH Q4H PRN 03/13/18 06/30/21 Inhaler] Ezetimibe [Zetia] 10 mg PO DAILY #30 tablet 03/13/18 06/30/21 Furosemide 20 mg PO DAILY #30 tablet 03/13/18 06/30/21 Ipratropium/Albuterol [Combivent 1 puffs INH QID 03/13/18 06/30/21 Respimat] Metformin HCl [Metformin HCl ER] 500 mg PO BID 03/13/18 06/30/21 Spironolactone 25 mg PO DAILY #30 tablet 03/13/18 06/30/21 amLODIPine [Norvasc] 5 mg PO DAILY #30 tablet 03/13/18 06/30/21 traMADol [Ultram] 50 mg PO TID PRN 03/13/18 06/30/21 Benzonatate [Tessalon] 100 mg PO Q6H PRN #25 capsule 05/07/20 06/30/21 Dulaglutide [Trulicity] 0.75 mg SQ MAINTENANCE.IV 06/30/21 - Allergies Allergies/Adverse Reactions: Allergies Allergy/AdvReac Type Severity Reaction Status Date / Time lisinopril Allergy Severe ANGIOEDEMA Verified 11/02/22 18:41 codeine Allergy Intermediate Cramps Verified 11/02/22 18:41 - Social History Does the pt smoke?: Yes Smoking Status: Current every day smoker Does the pt drink ETOH?: Yes Does the pt have substance abuse?: No - Immunizations Immunizations are current?: Yes - POLST Patient has POLST: No PD ED PE EXPANDED - Extremities Extremities: Left finger(s) (1.5 cm laceration over PIP joint of left middle finger. Preserved flexion extension. Neurovascular intact.) Results - Vitals Vitals: Vital Signs - 24 hr 11/02/22 11/02/22 11/02/22 18:38 18:44 18:55 Temperature 36 C L Heart Rate 77 Respiratory 16 17 17 Rate Blood Pressure 133/64 H O2 Saturation 95 Oxygen O2 Source Room air Procedures - Laceration (location) Left middle finger Length in cm: 1.5 Wound type: Linear Neurovascular status: Sensory intact, Vascular intact Tendon involvement: Tendon intact Wound preparation: Irrigated copiously NS Skin layer closure: Dermabond Other: Patient tolerated well, Tetanus UTD PD Medical Decision Making - ED course Complexity details: reviewed results, considered differential, d/w patient ED course: 32-year-old male presents emergency department for evaluation of a superficial laceration over the PIP joint of his left middle finger sustained when using a paring knife. He is right arm dominant. The laceration is superficial and is directly over the joint. I discussed with the patient that typically lacerations directly over the joint are not glued he would prefer to do that today instead of sutures as he would like to not have them removed. As such we did place Dermabond and placed patient in a finger splint. Routine wound care and usual emergent return precautions discussed Departure - Departure Disposition: 01 Home, Self Care Clinical Impression: Laceration of left middle finger Qualifiers: Encounter type: initial encounter Damage to nail status: without damage Foreign body presence: without foreign body Qualified Code(s): S61.213A - Laceration without foreign body of left middle finger without damage to nail, initial encounter Condition: Stable Record reviewed to determine appropriate education?: Yes Instructions: ED Laceration Ext Skin Glue Comments: Anand we did place Dermabond or glue over your laceration on your middle finger I expect that this will heal well over the next week or so. Because the laceration is directly over the joint and we glued it I had like you take keep your finger in the splint until this heals. This glue should simply wear away over the next 5 to 7 days. Return to the ER if you have any concerns of infection, fevers finger redness swelling or milky drainage
== END 2022-11-02 19:12 | disposition home or self-care (01) ==
LOC: ED 18:33
DX: S61.213A Laceration without foreign body of left middle finger without damage to nail, initial encounter (principal); W26.0XXA Contact with knife, initial encounter; F17.200 Nicotine dependence, unspecified, uncomplicated
CPT/HCPCS: 12001; 99281

== ENCOUNTER 2022-11-03 10:35 | Outpatient (CLI) | payer MEDICARE, OTHER ==
--- NOTE | 2022-11-03 11:12 | Sleep Patient Instructions ---
Sleep Center Visit Summary - Patient Visit Information Reason for Visit: Annual followup on CPAP therapy - Patient Instructions Additional Instructions: You will continue with CPAP therapy with pressure set at 10-15 cmH2O. A supply prescription will be updated with your DME. We encourage you to continue to try to lose weight. Please follow up with the sleep care office in 1 year. - Clinic Information Contact: [facility] [address] [place] [address] [email or web address] T: [phone]
[2022-11-03 11:15] VITALS: BP 128/68
--- NOTE | 2022-11-03 11:15 | SLEEP CARE CONSULTATION ---
Information from patient questionnaire entered by Alida Jensen. I have reviewed and concur with the information entered by Alida Jensen. This document represents the service I personally performed and the decisions made by me, Alicia Townsend ARNP. History of Present Illness Service Date and Time: 11/03/2022 1035 Previous diagnosis: Severe, Obstructive Sleep Apnea-Hypopnea Syndrome AHI: 38.1 Reason for follow up: annual (07/2021) Equipment type: CPAP (MCARTHUR Dreamstation 2) Equipment obtained from: [employer] ([employer] supplies) Mask style: Nasal (cushion) Backup mask available: Yes (old mask) Last cushion change: 2 days ago Prior sleep studies: Yes Year and Where: 2010 [facility] HPI additional information: RON CRONIN was diagnosed to have severe, AHI 38.1, obstructive sleep apnea- hypopnea syndrome and returned today for CPAP therapy annual follow-up. Sleep Study - Results Prior sleep studies: Yes Year and Where: 2010 [facility] CPAP Compliance Data - Data Reviewed with Patient Average duration of nightly device use: 10 HRS 18 MINS 33SECS Compliance rate %: 100 (-11/01/22; 180/180 days used) Current pressure setting (cmH2O): 10-15 Average residual AHI: 1.2 Central apnea: 0.2 Obstructive apnea: 0.8 Hypopnea: 0.2 Average large leak: 0 secs On Oxygen: Yes (2 liters) Subjective Patient concerns: denies: aerophagia, mask discomfort, air blowing in eyes, mask leak noise, condensation in mask/hose, nasal congestion, dry mouth, nose, throat, epistaxis Observed to snore while using device: No Current pressure setting perceived as: comfortable On therapy, patient: reports: sleeping better, awakening more refreshed, being more awake and alert during the day, more rested overall. denies: drowsiness while driving Initial [place] Sleepiness Scale score: 9 (in 2016) Current [place] Sleepiness Scale score: 7 (11/03/22) Allergies and Home Medications Known drug allergies: Yes (lisinopril, codeine) Drug allergies reviewed: Yes Home medication list reviewed: Yes (Lidocaine Patch for back pain) Allergy and home medication list: Allergies lisinopril Allergy (Severe, Verified 11/02/22 13:35) ANGIOEDEMA codeine Allergy (Intermediate, Verified 11/02/22 13:35) Cramps Review of Systems Review of systems same as previous: No (cortisone shot in Right Hip to be done in the near future) Physical Exam Vital signs obtained and entered by: ALIDA Williamson MA Blood Pressure: 128/68 (LEFT ARM) Cuff size: regular Heart Rate: 56 O2 Saturation: 92 Height: 5 ft 9.5 in Weight: 280 lb Weight change since last visit: 7 lb gain Body Mass Index: 40.7 BMI Classification: Morbidly Obese Impression and Plan 1. Obstructive Sleep Apnea-Hypopnea Syndrome, severe, with good treatment compliance and good apnea control. On CPAP therapy, the patient has better sleep quality and is more rested overall. Patient is still on oxygen per nasal cannula during day and bled through his CPAP machine at night at 2 L. Patient has significant improvement of their sleep apnea and is satisfied with current CPAP therapy. Patient denies problems with oral dryness, nasal congestion, epistaxis, skin irritation or aerophagia. Patient's apnea severity and rationale for treatment to reduce apnea, improve sleep quality and reduce cardiovascular and cerebrovascular events was reviewed. I also reviewed the benefit of consistent device use of CPAP for hypertension and diabetes. 2. Obesity, unspecified. Currently patients BMI is 40.7. Obesity increases the risk of apnea, CPAP pressure requirements and overall health risks especially cardiovascular and diabetes. Thus patient is advised to lose weight. * Continue auto CPAP pressure at 10-15 cmH2O * Continue on nocturnal oxygen bled through CPAP, 2 Liters/NC * Update supplies * Notify me if snoring with mask or feeling that the pressure is too much or too little * Attempt to lose weight * Call this office if any problems using CPAP * Return for follow up in 1 year, or sooner if concerns arise Counseling Topics: Spare mask, Weight loss health impact Visit Type: In Office Time Spent with Patient (minutes): 20 Provider Statement: I spent 100% of the Face to Face Visit with the patient with greater than 50% spent counseling the patient and coordination of care.
== END 2022-11-03 10:36 | disposition home or self-care (01) ==
LOC: SC 10:35
PROVIDERS: ATTEND Nurse Practitioner Family
DX: G47.33 Obstructive sleep apnea (adult) (pediatric) (principal); E66.01 Morbid (severe) obesity due to excess calories; Z68.41 Body mass index [BMI] 40.0-44.9, adult
CPT/HCPCS: 99213; G0463; 99212

== ENCOUNTER 2023-02-04 10:19 | Outpatient (CLI) | payer MEDICARE, OTHER ==
[2023-02-04 19:32] LABS: CALCIUM 9.4 mg/dL (8.5-10.3); POTASSIUM 4.7 mmol/L (3.5-4.5)
[2023-02-04 20:24] LABS: ESTIMATED AVERAGE GLUCOSE 134 mg/dL (70-100); HEMOGLOBIN A1c% 6.3 % (4.27-6.07)
== END 2023-02-04 10:20 | disposition home or self-care (01) ==
LOC: LAB.N 10:19
PROVIDERS: ATTEND Internal Medicine
DX: E11.42 Type 2 diabetes mellitus with diabetic polyneuropathy (principal)
CPT/HCPCS: 36415; 80048; 83036

== ENCOUNTER 2023-06-09 10:13 | Outpatient (CLI) | payer MEDICARE, OTHER ==
[2023-06-09 13:21] LABS: ALBUMIN 4.4 g/dL (3.2-5.5); ALBUMIN/GLOBULIN RATIO 1.3 (1.0-2.2); ALKALINE PHOSPHATASE 63 IU/L (42-121); ALT ALANINE AMINOTRANSFERASE 17 IU/L (10-60); AST ASPARTATE AMINOTRANSFERASE 18 IU/L (10-42); BILIRUBIN,TOTAL 0.5 mg/dL (0.2-1.0); BUN - BLOOD UREA NITROGEN 18 mg/dL (6-20); CALCIUM 9.8 mg/dL (8.5-10.3); CARBON DIOXIDE - CO2 24 mmol/L (21-32); CHLORIDE 108 mmol/L (101-111); CHOL/HDL RATIO 3.6 (<5.0); CHOLESTEROL 107 mg/dL; CREATININE 0.9 mg/dL (0.6-1.3); GFR - MDRD 82 (>89); GLUCOSE 106 mg/dL (74-104); HDL CHOLESTEROL 30 mg/dL; LDL CHOLESTEROL,CALCULATED 57 mg/dL; LDL/HDL RATIO 1.9 (<3.6); POTASSIUM 4.1 mmol/L (3.5-4.5); SODIUM 140 mmol/L (135-145); TOTAL PROTEIN 7.7 g/dL (6.4-8.9); TRIGLYCERIDES 98 mg/dL (48-352); VLDL CHOLESTEROL 20 mg/dL
[2023-06-09 13:25] LABS: BASOPHILS % (AUTO) 0.5 %; EOSINOPHILS # (AUTO) 0.3 10^3/uL (0.0-0.7); EOSINOPHILS % (AUTO) 3.6 %; HCT - HEMATOCRIT 46.2 % (42.0-52.0); HGB - HEMOGLOBIN 14.6 g/dL (14.0-18.0); LYMPHOCYTES # (AUTO) 1.1 10^3/uL (1.5-3.5); LYMPHOCYTES % (AUTO) 14.5 %; MEAN CORPUSCULAR HEMOGLOBIN 26.2 pg (27.0-31.0); MEAN CORPUSCULAR HGB CONC 31.6 g/dL (32.0-36.0); MEAN CORPUSCULAR VOLUME 82.9 fL (80.0-94.0); MEAN PLATELET VOLUME 10.8 fL (7.4-11.4); MONOCYTES # (AUTO) 0.4 10^3/uL (0.0-1.0); MONOCYTES % (AUTO) 5.7 %; NEUTROPHILS # (AUTO) 5.7 10^3/uL (1.5-6.6); NEUTROPHILS % (AUTO) 75.4 %; PLT - PLATELET COUNT 219 10^3/uL (130-450); RED BLOOD COUNT 5.57 10^6/uL (4.70-6.10); RED CELL DISTRIBUTION WIDTH 14.3 % (12.0-15.0); WHITE BLOOD COUNT 7.5 x10^3/uL (4.8-10.8)
[2023-06-09 13:31] LABS: CREATININE,URINE 18.9 mg/dL
[2023-06-09 13:35] LABS: ESTIMATED AVERAGE GLUCOSE 131 mg/dL (70-100); HEMOGLOBIN A1c% 6.2 % (4.27-6.07)
[2023-06-09 13:40] LABS: MICROALBUMIN,URINE < 0.7 mg/dL
== END 2023-06-09 10:14 | disposition home or self-care (01) ==
LOC: LAB.N 10:13
PROVIDERS: ATTEND Internal Medicine
DX: E11.42 Type 2 diabetes mellitus with diabetic polyneuropathy (principal); E78.5 Hyperlipidemia, unspecified; Z12.5 Encounter for screening for malignant neoplasm of prostate; I10 Essential (primary) hypertension
CPT/HCPCS: 36415; 80053; 80061; 82043; 82570; 83036; 85025; G0103; 83721; 84153

== ENCOUNTER 2023-09-29 15:00 | Outpatient (CLI) | payer MEDICARE, OTHER ==
--- NOTE | 2023-09-30 18:12 | XRAY Report ---
PROCEDURE: Chest 2V INDICATIONS: ACUTE COUGH TECHNIQUE: 2 views of the chest were acquired. COMPARISON: Chest x-ray, 06/17/2020. FINDINGS: Surgical changes and devices: None. Lungs and pleura: Bilateral lower lobe scars and atelectasis. No pleural effusions or pneumothorax. Mediastinum: Mediastinal contours appear normal. Heart size is normal. Bones and chest wall: No suspicious bony lesions. Overlying soft tissues appear unremarkable. IMPRESSION: 1. No acute cardiopulmonary process. 2. Bilateral lower lobe scars and atelectasis. Reviewed by: Neelima Rocha MD on 09/30/2023 6:10 PM PDT Approved by: Neelima Rocha MD on 09/30/2023 6:10 PM PDT Station ID: [id number]
== END 2023-09-29 15:15 | disposition home or self-care (01) ==
LOC: DI.N 15:00
PROVIDERS: ATTEND Physician Assistant Medical
DX: R05.1 Acute cough (principal); J98.11 Atelectasis; J98.4 Other disorders of lung

== ENCOUNTER 2023-10-09 07:31 | Outpatient (CLI) | payer MEDICARE, OTHER ==
[2023-10-09 12:35] LABS: CALCIUM 9.8 mg/dL (8.5-10.3); POTASSIUM 4.1 mmol/L (3.5-4.5)
[2023-10-09 12:39] LABS: ESTIMATED AVERAGE GLUCOSE 146 mg/dL (70-100); HEMOGLOBIN A1c% 6.7 % (4.27-6.07)
== END 2023-10-09 07:32 | disposition home or self-care (01) ==
LOC: LAB.N 07:31
PROVIDERS: ATTEND Internal Medicine
DX: E11.42 Type 2 diabetes mellitus with diabetic polyneuropathy (principal)
CPT/HCPCS: 36415; 80048; 83036

== ENCOUNTER 2023-10-23 07:40 | Outpatient (CLI) | payer MEDICARE, OTHER ==
--- NOTE | 2023-10-24 11:52 | Ultrasound Report ---
PROCEDURE: [facility] (Retroperitoneal Ltd INDICATIONS: AAA TECHNIQUE: Real time scanning was performed of the aorta and iliac arteries, with image documentatio n. COMPARISON: Retroperitoneal ultrasound on September 21, 2021. FINDINGS: Aorta: Proximal aortic diameter measures 2.7 x 2.8 cm. (Previously 2.7 x 2.8 cm) Mid-aorta measures 2.2 x 2.3 cm. (Previously 2.1 x 2.2 cm) Distal aortic diameter is 3.1 x 3 cm. (Previously 3.2 x 3.1 cm) Scattered atherosclerotic plaque. Iliac arteries: Right common iliac artery measures 1.4 x 1.6 cm. Left common iliac artery measures 1.6 x 1.4 cm. IMPRESSION: 1.Distal aorta abdominal aneurysm measuring 3.1 x 3 cm, previously 3.2 x 3.1 cm. 2.Bilateral common iliac arteries are normal in caliber, where visualized. Recommended intervals for follow-up imaging of ectatic aortas and abdominal aortic aneurysms, per ACR consensus guidelines: 2.5-2.9 cm: 5 years 3.0-3.4 cm: 3 years 3.5-3.9 cm: 2 years 4.0-4.4 cm: 1 year 4.5-4.9 cm: 6 months + endovascular referral 5.0-5.5 cm: 3-6 months + endovascular referral Reviewed by: Tristen Schmid MD on 10/24/2023 11:51 AM PDT Approved by: Tristen Schmid MD on 10/24/2023 11:51 AM PDT Station ID: [id number]
== END 2023-10-23 07:41 | disposition home or self-care (01) ==
LOC: DI 07:40
PROVIDERS: ATTEND Internal Medicine
DX: I71.40 Abdominal aortic aneurysm, without rupture, unspecified (principal)

== ENCOUNTER 2023-11-17 11:22 | Outpatient (CLI) | payer MEDICARE, OTHER ==
--- NOTE | 2023-11-17 12:08 | Sleep Patient Instructions ---
Sleep Center Visit Summary - Patient Visit Information Reason for Visit: Annual follow-up - Patient Instructions Additional Instructions: You will continue with CPAP therapy with pressure set at 10-15 cmH2O. A supply prescription will be updated with your DME. We encourage you to continue to try to lose weight. Please follow up with the sleep care office in 1 year. - Clinic Information Contact: [facility] [address] [place] [address] [email or web address] T: [phone]
--- NOTE | 2023-11-17 12:12 | SLEEP CARE CONSULTATION ---
Information from patient questionnaire entered by Alida Jensen. I have reviewed and concur with the information entered by Alida Jensen. This document represents the service I personally performed and the decisions made by me, Alicia Townsend ARNP. History of Present Illness Service Date and Time: 11/17/2023 1122 Previous diagnosis: Severe, Obstructive Sleep Apnea-Hypopnea Syndrome AHI: 38.1 (2010) Reason for follow up: annual (LAST SEEN 10/2022) Equipment type: CPAP (MCARTHUR Dreamstation 2) Equipment obtained from: [employer] (getting supplies) Mask style: Nasal (cushion) Backup mask available: No Last cushion change: last night Prior sleep studies: Yes Year and Where: 2010 [facility] HPI additional information: RON CRONIN was diagnosed to have severe, AHI 38.1, obstructive sleep apnea- hypopnea syndrome and returned today for CPAP therapy annual follow-up. Sleep Study - Results Prior sleep studies: Yes Year and Where: 2010 [facility] CPAP Compliance Data - Data Reviewed with Patient Average duration of nightly device use: 10 HRS 35 MINS 37 SECS Compliance rate %: 79.7 (06/17/2023-11/16/2023; 122/153 days used) Current pressure setting (cmH2O): 10-15 Average residual AHI: 1.2 Average large leak: 1 secs On Oxygen: Yes (2 L) Subjective Patient concerns: denies: aerophagia, mask discomfort, air blowing in eyes, mask leak noise, condensation in mask/hose, nasal congestion, dry mouth, nose, throat, epistaxis Observed to snore while using device: No Current pressure setting perceived as: comfortable On therapy, patient: reports: sleeping better, awakening more refreshed, being more awake and alert during the day, more rested overall. denies: drowsiness while driving Initial [place] Sleepiness Scale score: 9 (in 2016) Current [place] Sleepiness Scale score: 3 Allergies and Home Medications Known drug allergies: Yes (as listed) Drug allergies reviewed: Yes Home medication list reviewed: Yes (no changes) Allergy and home medication list: Allergies lisinopril Allergy (Severe, Verified 11/15/23 11:21) ANGIOEDEMA codeine Allergy (Intermediate, Verified 11/15/23 11:21) Cramps Review of Systems Review of systems same as previous: Yes (no changes) Physical Exam Vital signs obtained and entered by: ALICIA BEST Blood Pressure: 143/70 Cuff size: long (right arm) Heart Rate: 55 O2 Saturation: 91 (with 2 L oxygen ) Height: 5 ft 9.5 in Weight: 275 lb Body Mass Index: 40.0 BMI Classification: Morbidly Obese Impression and Plan 1. Obstructive Sleep Apnea-Hypopnea Syndrome, severe, with good treatment compliance and good apnea control. On CPAP therapy, the patient has better sleep quality and is more rested overall. He continues to use 2 L of oxygen per nasal cannula 23/01. Patient has significant improvement of their sleep apnea and is satisfied with current CPAP therapy. Patient denies problems with oral dryness, nasal congestion, epistaxis, skin irritation or aerophagia. Patient's apnea severity and rationale for treatment to reduce apnea, improve sleep quality and reduce cardiovascular and cerebrovascular events was reviewed. I also reviewed the benefit of consistent device use of CPAP for hypertension, diabetes. 2. Obesity, unspecified. Currently patients BMI is 40. Obesity increases the risk of apnea, CPAP pressure requirements and overall health risks especially cardiovascular and diabetes. Thus patient is advised to lose weight. * Continue auto CPAP pressure at 10-15 cmH2O * Update supply prescription * Notify me if snoring with mask or feeling that the pressure is too much or too little * Attempt to lose weight * Call this office if any problems using CPAP * Return for follow up in 12 months, or sooner if concerns arise Counseling Topics: Spare mask, Weight loss health impact Prescriptions: Device supplies Follow up with Sleep Care in: 1 year Visit Type: In Office Time Spent with Patient (minutes): 23 Provider Statement: I spent 100% of the Face to Face Visit with the patient with greater than 50% spent counseling the patient and coordination of care.
[2023-11-17 12:17] VITALS: BP 143/70; O2SAT 91
== END 2023-11-17 11:23 | disposition home or self-care (01) ==
LOC: SC 11:22
PROVIDERS: ATTEND Nurse Practitioner Family
DX: G47.33 Obstructive sleep apnea (adult) (pediatric) (principal); E66.01 Morbid (severe) obesity due to excess calories; Z68.41 Body mass index [BMI] 40.0-44.9, adult; Z99.81 Dependence on supplemental oxygen
CPT/HCPCS: 99213; G0463; 99212

== ENCOUNTER 2023-11-25 19:49 | Emergency (ER) | payer MEDICARE, OTHER ==
[2023-11-25 21:15] LABS: BASOPHILS % (AUTO) 0.5 %; EOSINOPHILS # (AUTO) 0.1 10^3/uL (0.0-0.7); EOSINOPHILS % (AUTO) 1.3 %; HCT - HEMATOCRIT 43.5 % (42.0-52.0); HGB - HEMOGLOBIN 13.3 g/dL (14.0-18.0); LYMPHOCYTES # (AUTO) 1.3 10^3/uL (1.5-3.5); LYMPHOCYTES % (AUTO) 14.4 %; MEAN CORPUSCULAR HEMOGLOBIN 25.9 pg (27.0-31.0); MEAN CORPUSCULAR HGB CONC 30.6 g/dL (32.0-36.0); MEAN CORPUSCULAR VOLUME 84.8 fL (80.0-94.0); MEAN PLATELET VOLUME 10.5 fL (7.4-11.4); MONOCYTES # (AUTO) 0.5 10^3/uL (0.0-1.0); MONOCYTES % (AUTO) 5.4 %; NEUTROPHILS # (AUTO) 6.8 10^3/uL (1.5-6.6); NEUTROPHILS % (AUTO) 78.2 %; PLT - PLATELET COUNT 203 10^3/uL (130-450); RED BLOOD COUNT 5.13 10^6/uL (4.70-6.10); WHITE BLOOD COUNT 8.7 x10^3/uL (4.8-10.8)
[2023-11-25 21:32] LABS: CALCIUM 9.4 mg/dL (8.5-10.3); POTASSIUM 4.1 mmol/L (3.5-4.5); URIC ACID 5.8 mg/dL (4.4-7.6)
[2023-11-25] MEDS ORDERED: INDOMETHACIN 25 MG CAPSULE PO STA (21:50)
--- NOTE | 2023-11-25 21:55 | ED Physician Documentation ---
PD HPI LOWER EXT INJURY - Stated complaint Stated Complaint: LFT ANKLE/KNEE PX/SWELLING - Chief complaint Chief Complaint: Ext Problem - Additional information Additional information: 73-year-old male with history of hypertension, hypercholesterolemia, COPD, type 2 diabetes, GERD presents emergency department for left ankle pain that started 2 to 3 days ago and now experiencing intermittent left knee pain. Patient has had no fevers or chills no trauma no recent falls. No history of DVTs. No recent fevers or chills and overall does not feel ill. PD PAST MEDICAL HISTORY - Past Medical History Past Medical History: Yes Cardiovascular: Hypertension, High cholesterol Respiratory: COPD, Sleep apnea, CPAP use Neuro: None Endocrine/Autoimmune: Type 2 diabetes GI: GERD, Colon polyps, Hemorrhoids : None, Frequency HEENT: None Psych: None Musculoskeletal: Osteoarthritis, Other Derm: None - Past Surgical History Past Surgical History: Yes General: Cholecystectomy, Appendectomy, Colonoscopy Ortho: Arthroscopic surgery HEENT: Cataracts - Present Medications Home Medications: Ambulatory Orders Medication Instructions Recorded Confirmed Aspirin Chewable [[place] 81 mg PO DAILY 06/20/13 11/03/22 Aspirin] Multivitamin [Multi-Day Vitamins] 1 tab PO DAILY 06/20/13 11/03/22 [place]-3 Fatty Acids/Fish Oil [Fish 1 each PO BID 06/20/13 11/03/22 Oil 1,000 mg Capsule] Cetirizine [ZyrTEC] 10 mg PO DAILY 04/13/17 11/03/22 Fluticasone/Salmeterol [Advair 1 inh INH BID 04/13/17 11/03/22 250-50 Diskus] Pantoprazole Sodium [Protonix] 40 mg PO QDAC 04/13/17 11/03/22 Albuterol Sulfate [Proair Hfa 2 puffs INH Q4H PRN 03/13/18 11/03/22 Inhaler] Ezetimibe [Zetia] 10 mg PO DAILY #30 tablet 03/13/18 11/03/22 Furosemide 20 mg PO DAILY #30 tablet 03/13/18 11/03/22 Ipratropium/Albuterol [Combivent 1 puffs INH QID 03/13/18 11/03/22 Respimat] Metformin HCl [Metformin HCl ER] 500 mg PO BID 03/13/18 11/03/22 Spironolactone 25 mg PO DAILY #30 tablet 03/13/18 11/03/22 amLODIPine [Norvasc] 5 mg PO DAILY #30 tablet 03/13/18 11/03/22 traMADol [Ultram] 50 mg PO TID PRN 03/13/18 11/03/22 Benzonatate [Tessalon] 100 mg PO Q6H PRN #25 capsule 05/07/20 11/03/22 Dulaglutide [Trulicity] 0.75 mg SQ MAINTENANCE.IV 06/30/21 11/03/22 Lidocaine See Rx Instructions .ROUTE .COMPLEX 11/03/22 11/03/22 Colchicine 0.6 mg PO DAILY #10 tablet 11/25/23 Indomethacin [Indocin] 50 mg PO TID 5 Days #30 cap 11/25/23 predniSONE [Deltasone] 40 mg PO DAILY 4 Days #8 tablet 11/25/23 - Allergies Allergies/Adverse Reactions: Allergies Allergy/AdvReac Type Severity Reaction Status Date / Time lisinopril Allergy Severe ANGIOEDEMA Verified 11/25/23 20:24 codeine Allergy Intermediate Cramps Verified 11/25/23 20:24 - Social History Does the pt smoke?: Yes Smoking Status: Current every day smoker Does the pt drink ETOH?: Yes Does the pt have substance abuse?: No - Immunizations Immunizations are current?: Yes - POLST Patient has POLST: No PD ED PE NORMAL - Vitals Vital signs reviewed: Yes - General General: Alert and oriented X 3, No acute distress, Well developed/nourished - Derm Derm: Other (Left lateral ankle erythema) - Extremities Extremities: Other - Psych Psych: Normal mood - Free text exam Free text exam: Left lower extremity: Left ankle 1+ pitting edema with tenderness with palpation to the lateral medial aspect. Pain with flexion extension of the ankle. Warm to the touch, erythema to the lateral aspect of the ankle does not spread up to calf or leg. Positive dorsalis pedis pulses. Left knee mild swelling not hot to the touch no pitting edema less pain with flex and extension some tenderness with palpation to the patella tendon. Results - Vitals Vitals: Vital Signs - 24 hr 11/25/23 11/25/23 11/25/23 20:13 20:24 22:33 Temperature 36.6 C Heart Rate 59 L 59 L 62 Respiratory 20 18 Rate Blood Pressure 148/91 H 145/89 H O2 Saturation 94 99 Oxygen O2 Source Nasal cannula - Labs Labs: Laboratory Tests 11/25/23 11/25/23 11/25/23 21:11 21:11 21:11 WBC 8.7 RBC 5.13 Hgb 13.3 L Hct 43.5 MCV 84.8 MCH 25.9 L MCHC 30.6 L RDW 14.0 Plt Count 203 MPV 10.5 Neut # (Auto) 6.8 H Lymph # (Auto) 1.3 L [place] # (Auto) 0.5 Eos # (Auto) 0.1 Baso # (Auto) 0.0 Absolute Nucleated RBC 0.00 Nucleated RBC % 0.0 ESR 20 Sodium 139 Potassium 4.1 Chloride 106 Carbon Dioxide 26 Anion Gap 7.0 BUN 19 Creatinine 1.0 Estimated GFR (MDRD) 73 L Glucose 119 H Uric Acid 5.8 Calcium 9.4 C-Reactive Protein 11/25/23 21:11 WBC RBC Hgb Hct MCV MCH MCHC RDW Plt Count MPV Neut # (Auto) Lymph # (Auto) [place] # (Auto) Eos # (Auto) Baso # (Auto) Absolute Nucleated RBC Nucleated RBC % ESR Sodium Potassium Chloride Carbon Dioxide Anion Gap BUN Creatinine Estimated GFR (MDRD) Glucose Uric Acid Calcium C-Reactive Protein 4.0 H - Rads (name of study) Left lower extremity venous duplex Relevant Findings:: Final report received, EMP independent interpretation of test, Other (Negative DVT. Unencapsulated fluid in the soft tissue probable reactive) PD Medical Decision Making - ED course ED course: 73-year-old male presents emergency department for left ankle and left knee pain. Differentials included but not limited to cellulitis, DVT, gout, septic arthritis. Venous duplex confirmed that there is no DVT although it does also confirm that there is an unencapsulated fluid in the soft tissue probably reactive. There is similar findings at the knee as well. Labs are complete for further evaluation and he does not have any leukocytosis making me slightly less worried about this being related to cellulitis or septic arthritis. He remains afebrile with normal vital signs. His CRP is elevated at 4.0 and his uric acid is found be within normal limits although this is not entirely diagnostic for gout. Given patient's presentation I do believe that this is gout. I have given him first dose of colchicine 1.2 mg here in the emergency department and a second 0.6 mg 1 hour after that. We do not have any indomethacin here in the ER he was also started on prednisone and was told to very closely monitor his blood sugar. Patient was given very strict return precautions and was told that this could still possibly be septic arthritis but at this point in time want to start with treating this for gout and if he gets any worse in any way shape or form to come back to the emergency department for further evaluation. He is told of his blood sugar reaches greater than 250 to discontinue his steroids. He is told to follow-up with his primary care provider for further evaluation and given very strict ER return precautions. Colchicine, indomethacin, steroid prescription was sent to patient's preferred pharmacy. Departure - Departure Disposition: 01 Home, Self Care Clinical Impression: Gout attack Instructions: Gout Attack Tx, Gout Eat Prevent, ED Diet Gout Prescriptions: Colchicine 0.6 mg PO DAILY #10 tablet predniSONE [Deltasone] 40 mg PO DAILY 4 Days #8 tablet Indomethacin [Indocin] 50 mg PO TID 5 Days #30 cap Comments: Thank you for trusting us with your care. I do believe that you are experiencing a gout attack. We have given you a first dose of colchicine here in the emergency department and will take the next dose of 0.6 milligrams in 1 hour and then 0.6 mg once a day until resolution But make sure that you are only taking it in the evenings moving forward. I have also started you on a steroid be very careful with this with your blood sugar make sure that you are being very cautious with your diet and strictly watching your blood sugars while you are taking the steroid as this can increase your blood sugars significantly. We have given you the first dose here in the ER you will take the next dose every morning for the next 4 days. If your blood sugar goes higher than 250 stop taking the steroids. I have also started you on a medication called indomethacin do not take this when any Aleve or ibuprofen you will take 50 mg up to 3 times a day as needed for pain. Keep your left foot elevated is much as possible. Please follow-up with your primary care provider to let them know about today's ER visit. Please have a very low threshold come back to the ER if you are not noticing any improvement of your symptoms, getting worse, worsening pain, fevers or chills, or any other emergent concerning symptoms at all. Forms: PCP List Discharge Date/Time: 11/25/23 22:33
--- NOTE | 2023-11-25 22:16 | Ultrasound Report ---
PROCEDURE: Duplex Ext Veins Left INDICATIONS: Left lower ext swelling and pain TECHNIQUE: Real-time imaging, as well as color and pulse Doppler interrogation, were performed of th e lower extremity deep veins from the inguinal ligament to the popliteal fossa. Attempted visualizati on of the calf veins was performed. COMPARISON: 10/23/2023 FINDINGS: The deep veins are normally compressible, and free of intraluminal thrombus. Color and pu lse Doppler demonstrate normal phasic intraluminal flow. There is normal augmentation response to di stal compression maneuver. IMPRESSION: No deep venous thrombosis of the visualized lower extremity. Anterior pain left ankle, there is unncapsulated fluid in the soft tissues, probably reactive. Additi onal similar-appearing fluid at the knee Reviewed by: Valentin Houston MD on 11/25/2023 9:15 PM WALI Approved by: Valentin Houston MD on 11/25/2023 9:15 PM WALI Station ID: [id number]
[2023-11-25] MEDS: predniSONE 20 MG TABLET PO STA (22:27)
[2023-11-25] MEDS: COLCHICINE 0.6 MG TABLET PO STA (22:27)
[2023-11-25] MEDS ORDERED: COLCHICINE 0.6 MG TABLET PO ONE (22:28)
[2023-11-25] MEDS: COLCHICINE 0.6 MG TABLET PO SCH (22:29)
[2023-11-25 22:36] VITALS: BP 145/89; O2SAT 99
== END 2023-11-25 22:33 | disposition home or self-care (01) ==
LOC: ED 19:49
DX: M10.9 Gout, unspecified (principal); E11.9 Type 2 diabetes mellitus without complications; Z79.4 Long term (current) use of insulin; F17.200 Nicotine dependence, unspecified, uncomplicated
CPT/HCPCS: 36415; 80048; 84550; 85025; 85651; 86140; 93971; 99284; A9270; J7512

== ENCOUNTER 2024-02-22 14:04 | Outpatient (CLI) | payer MEDICARE, OTHER ==
--- NOTE | 2024-02-23 13:20 | XRAY Report ---
PROCEDURE: Chest 2V INDICATIONS: PRODUCTIVE COUGH TECHNIQUE: 2 views of the chest were obtained. COMPARISON: 09/29/2023 FINDINGS: Surgical changes and devices: None. Lungs and pleura: Right basilar atelectasis and or infiltrate. Remainder of the lungs and pleural sp aces are clear. Mediastinum: Mediastinal contours appear normal. Heart size is normal. Bones and chest wall: No suspicious bony lesions. Overlying soft tissues appear unremarkable. IMPRESSION: Right basilar atelectasis and or infiltrate Reviewed by: Valentin Houston MD on 02/23/2024 12:19 PM AKDT Approved by: Valentin Houston MD on 02/23/2024 12:19 PM AKDT Station ID: [id number]
== END 2024-02-22 23:59 | disposition home or self-care (01) ==
LOC: DI.N 14:04
PROVIDERS: ATTEND Physician Assistant Medical
DX: R91.8 Other nonspecific abnormal finding of lung field (principal)

== ENCOUNTER 2024-03-19 14:15 | Outpatient (CLI) | payer MEDICARE, OTHER ==
--- NOTE | 2024-03-19 16:09 | XRAY Report ---
PROCEDURE: Hand 1-2V LT INDICATIONS: CONTUSION OF LEFT HAND TECHNIQUE: 3 views of the hand(s) acquired. COMPARISON: None. FINDINGS: Bones: No fractures or dislocations. No suspicious bony lesions. Soft tissues: No suspicious soft tissue calcifications or masses. IMPRESSION: No acute bony abnormality. Reviewed by: Wilfredo Kate MD on 03/19/2024 4:08 PM PDT Approved by: Wilfredo Kate MD on 03/19/2024 4:08 PM PDT Station ID: [id number]
== END 2024-03-19 14:16 | disposition home or self-care (01) ==
LOC: DI.N 14:15
PROVIDERS: ATTEND Physician Assistant Medical
DX: S60.222A Contusion of left hand, initial encounter (principal)